=== PATIENT | female | born 1955 | race Caucasian/White ===

== ENCOUNTER → 2016-09-16 | Outpatient (CLI) | payer OTHER | LOC: FIMAGING 07:00 | PROVIDERS: ATTEND Psychiatry & Neurology Neurology | DX: M50.321 Other cervical disc degeneration at C4-C5 level (principal); M50.33 Other cervical disc degeneration, cervicothoracic region ==

== ENCOUNTER 2016-11-02 05:58 | Inpatient (IN) | payer OTHER ==
[2016-11-02] MEDS ORDERED: LIDOCAINE 1% 2 ML INJ ID PRN (06:35)
[2016-11-02] MEDS ORDERED: LR 1,000 ML IV ONE (06:35)
[2016-11-02] MEDS ORDERED: LIDOCAINE 1% 2 ML INJ ONE (06:36)
--- NOTE | 2016-11-02 06:52 | PDANEPAE ---
ANE History of Present Illness 61 yo F with cervical stenosis, here for C3-4 ACDF ANE Past Medical History - Cardiovascular History Hx Hypertension: Yes Hx Arrhythmias: No Hx Chest Pain: No Hx Coronary Artery / Peripheral Vascular Disease: No Hx CHF / Valvular Disease: No Hx Palpitations: No Cardiovascular History Comment: hx of thoracic outlet syndrome - Pulmonary History Hx COPD: No Hx Asthma/Reactive Airway Disease: No Hx Recent Upper Respiratory Infection: No Hx Oxygen in Use at Home: No Hx Sleep Apnea: No Sleep Apnea Screening Result - Last Documented: Negative - Neurologic History Hx Cerebrovascular Accident: No Hx Seizures: No Hx Dementia: No Neurologic History Comment: hx of back surgery. numbness and tingling to both arms and both legs - Endocrine History Hx Diabetes: Yes Endocrine History Comment: type 2- insulin dependent though because metformin gave her issues - Renal History Hx Renal Disorders: No - Liver History Hx Hepatic Disorders: No - Neurological & Psychiatric Hx Hx Neurological and Psychiatric Disorders: No - Cancer History Hx Cancer: No - Congenital Disorder History Hx Congenital Disorders: No - GI History Hx Gastrointestinal Disorders: Yes Gastrointestinal History Comment: GERD. hiatal hernia - Other Health History Other Health History: wears glasses for reading and computer - Chronic Pain History Chronic Pain: Yes (back pain from top to bottom) - Surgical History Prior Surgeries: 1973 oral surgery. 1975 thoracic outlet surgery- left. 1977 thoracic outlet surgery- right. 1982 bilateral bunionectomy and tendonotomies. 1983 partial vaginal hysterectomy. 1984 repair of right side thoracic outlet surgery- this is when she had anaphylactic shock d/t morphine. 1988 carpal tunnel surgery-right. 1994 right shoulder surgery. 1997 l4 lami and l5 discectomy. 1998 lasik eye surgery on left eye. 2000 abdominoplasty. 2004 carotid endarterectomy. 2005 betty. 2006 emergent appy. 2008 right shoulder surgery again. 2009 lower right dental implant. 2009 carpal tunnel surgery- left. 2009 lumbar fusion l3-4, 4-5. 2014 dental implant upper left second bicuspid. 09/2014 right carpal tunnel release- under local. 10/2014 bilateral salipingectomy and oophorectomy d/t large ovarian tumors ANE Review of Systems - Exercise capacity Exercise capacity: >=4 METS METS (RN): 4 METS ANE Patient History - Allergies Allergies/Adverse Reactions: atorvastatin [From Lipitor] Allergy (Severe, Verified 10/22/16 16:20) codeine Allergy (Severe, Verified 10/22/16 16:20) Dyspnea diclofenac [From Voltaren] Allergy (Severe, Verified 10/22/16 16:20) Dyspnea meperidine [From Demerol] Allergy (Severe, Verified 10/22/16 16:20) Dyspnea methadone Allergy (Severe, Verified 10/22/16 16:20) morphine Allergy (Severe, Verified 10/22/16 16:20) Anaphylaxis tramadol [From Ultram] Allergy (Severe, Verified 10/22/16 16:20) Dyspnea fentanyl Allergy (Mild, Verified 11/02/16 06:50) Other-Enter Comments ketamine Allergy (Mild, Verified 10/22/16 16:20) Other-Enter Comments - Home Medications Home medications: home medication list seen and reviewed Home Medications: Ascorbic Acid [Vitamin C 500 mg (*)] 500 mg PO DAILY 10/22/16 [Last Taken ] Aspirin [Aspirin 81mg (*)] 81 mg PO HS 10/22/16 [Last Taken 2 Weeks Ago] Cholecalciferol Vit D3 [Vitamin D3 (*)] 1,000 units PO DAILY 10/22/16 [Last Taken 10/19/16] Estradiol [Estradiol 1 MG (*)] 0 mg PO BID 10/22/16 [Last Taken 1 Day Ago] Herbals/Supplements -Info Only 1 ea PO DAILY 10/22/16 [Last Taken 10/19/16] Insulin Aspart [novoLOG] 5 - 15 unit SC TIDMEAL 10/22/16 [Last Taken 11/01/16 20 :00] Insulin Glargine [Lantus 100 UNITS/ML (*)] 36 units SC BID 10/22/16 [Last Taken 11/02/16 04:30] Losartan/Hydrochlorothiazide [Losartan-Hctz 50-12.5 mg Tab] 1 each PO DAILY 06/05 [Last Taken 1 Day Ago] Multivitamins [Multivitamin (*)] 1 each PO DAILY 10/22/16 [Last Taken 2 Weeks Ago] [place]-3 Fatty Acids [Fish Oil 1000 mg (*)] 1,000 mg PO DAILY 10/22/16 [Last Taken 2 Weeks Ago] Omeprazole 40 mg PO BID 10/22/16 [Last Taken 11/02/16 04:30] Ranitidine HCl 150 mg PO BID 10/22/16 [Last Taken 11/02/16 04:30] Rosuvastatin Calcium [Crestor 5mg] 5 mg PO DAILY 10/22/16 [Last Taken 1 Day Ago] - NPO status NPO Status: no food or drink >8 hours NPO Since - Liquids (Date): 11/01/16 NPO Since - Liquids (Time): 21:00 NPO Since - Solids (Date): 11/01/16 NPO Since - Solids (Time): 20:00 - Anes Hx Anes Hx: slow to awaken from anesthesia - Smoking Hx Smoking Status: Never smoked - Alcohol Use Alcohol Use: Rarely - Family Anes Hx Family Anes Hx: none Family Hx Anesthesia Complications: none ANE Labs/Vital Signs - Vital Signs Blood Pressure: 143/78 Heart Rate: 58 Respiratory Rate: 18 O2 Sat (%): 94 Height: 167.64 cm Weight: 89.811 kg ANE Physical Exam - Airway Neck exam: decreased ROM Mallampati Score: Class 4 Mouth exam: normal dental/mouth exam - Pulmonary Pulmonary: no respiratory distress - Cardiovascular Cardiovascular: regular rate and rhythym - ASA Status ASA Status: III ANE Anesthesia Plan Anesthesia Plan: general endotracheal anesthesia Specialized Airway: video laryngoscope
[2016-11-02] MEDS ORDERED: BACITRACIN 50,000 UNITS/10 ML SYR IRR ONE (06:54)
[2016-11-02] MEDS ORDERED: BUPIVACAINE/EPI 0.25% 30 ML SDV ONE (06:54)
[2016-11-02] MEDS ORDERED: THROMBIN (BOVINE) 5,000 UNIT VIAL TP ONE (06:55)
[2016-11-02] MEDS ORDERED: CHLORHEXIDINE GLUC HIBICLENS 118 ML BTL TP ONE (06:55)
[2016-11-02] MEDS ORDERED: MIDAZOLAM 2 MG/2 ML VIAL IVP ONE (06:55)
--- NOTE | 2016-11-02 07:08 | PDHPUP ---
History & Physical Update H&P update statement: This history and physical update is based on an assessment of the patient which was completed after admission or registration (within 24 hours), but prior to the surgery/procedure. H&P update: H&P reviewed & patient examined, no change in patient's condition since H&P completed
[2016-11-02] MEDS: SCOPOLAMINE HYDROBROMIDE 1.5 MG PATCH TD SCH (07:17)
[2016-11-02] MEDS ORDERED: REMIFENTANIL HCL 1 MG VIAL ONE ×2 (07:18→09:34)
[2016-11-02] MEDS ORDERED: PROPOFOL 200 MG/20 ML VIAL ONE (07:19)
[2016-11-02] MEDS ORDERED: PROPOFOL/EMULSION 500 MG/50 ML BOTTLE IV ONE ×2 (07:19→09:34)
[2016-11-02] MEDS ORDERED: fentaNYL 100 MCG/2 ML INJ ONE ×2 (07:19→10:33)
[2016-11-02] MEDS ORDERED: LIDOCAINE 2% 100 MG/5 ML SYR ONE (07:24)
[2016-11-02] MEDS ORDERED: ROCURONIUM 50 MG/5 ML VIAL ONE (07:25)
[2016-11-02] MEDS ORDERED: ceFAZolin 2 GM/DEXTROSE 100 ML IV ONE (07:30)
[2016-11-02] MEDS ORDERED: epHEDrine SULFATE 10 MG/ML SYR ONE (08:13)
[2016-11-02] MEDS ORDERED: PHENYLEPHRINE HCL 100 MCG/ML SYR ONE ×2 (08:13→09:21)
[2016-11-02] MEDS ORDERED: BISACODYL 10 MG SUPP PR PRN (08:15)
[2016-11-02] MEDS ORDERED: ONDANSETRON DISINTEGRATING 4 MG TAB PO PRN (08:15)
[2016-11-02] MEDS ORDERED: diphenhydrAMINE 25 MG CAP PO PRN (08:15)
[2016-11-02] MEDS ORDERED: LACTULOSE 20 GM/30 ML UDCUP PO PRN (08:15)
[2016-11-02] MEDS ORDERED: MAGNESIUM HYDROXIDE 30 ML UDCUP PO PRN (08:15)
[2016-11-02] MEDS ORDERED: POLYETHYLENE GLYCOL 3350 17 GM PKT PO PRN (08:15)
[2016-11-02] MEDS ORDERED: HYDROmorphONE/DILAUDID 2 MG TAB PO PRN (08:24)
[2016-11-02] MEDS ORDERED: DEXAMETHASONE 4 MG/ML VIAL ONE (08:31)
[2016-11-02] MEDS ORDERED: ONDANSETRON 4 MG/2 ML VIAL ONE (08:31)
[2016-11-02] MEDS: BUPIVACAINE 0.5% 30 ML SDV ONE ×2 (08:48→10:26)
[2016-11-02] MEDS ORDERED: NON-FORMULARY NEW DRUG (Omeprazole [Omeprazole] 40 MG) PO SCH (09:00)
[2016-11-02] MEDS ORDERED: NON-FORMULARY NEW DRUG (Rosuvastatin Calcium [Crestor 5mg] 5 MG) PO SCH (09:00)
[2016-11-02] MEDS ORDERED: NON-FORMULARY NEW DRUG (Ranitidine Hcl [Ranitidine Hcl] 150 MG) PO SCH (09:00)
[2016-11-02] MEDS ORDERED: SUGAMMADEX SODIUM 200 MG/2 ML VIAL IVP ONE (10:43)
--- NOTE | 2016-11-02 10:48 | POSTOPPROG ---
Post Op Note Date of Operation: 11/02/16 Surgeon: Shala Flores Casino Host: Shala Flores [employer] Anesthesia: GET(General Endotracheal) Pre-op Diagnosis: Cervical stenosis with myelopathy Procedure: ACDF C3-4 Inf/Abcess present in the surg proc area at time of surgery?: No Depth: Deep Incisional (Fascial) EBL: Minimal Total fluids administered: see anesthesia Complications: none Date of Surgery: 11/02/16 Post Op Day: 0 Assessment/Plan: 61 yr old s/p ACDF C3-4 for bilateral upper extremity symptoms left>right Plan: -Patient has laceration post op at the base of her tongue, consulted ENT/Dr Paul for evaluation -Hard collar for 2-3 weeks, patient already fit -PT/OT/ST -Patient has allergies to several medications, states Dilaudid and Benadryl has worked for her in the past with other surgeries -Call neurosurgery with any questions/concerns Subjective: Patient waking up in PACU Objective: PERRLA EOMI No facial droop 5/5 BUE 5/5 BLE Sensation intact to light touch BLE Dressing CDI Appropriate Neuro Check Frequency Ordered: Yes
[2016-11-02] MEDS ORDERED: ONDANSETRON 4 MG/2 ML VIAL IVP PRN (10:57)
[2016-11-02] MEDS ORDERED: OXYCODONE/APAP 5/325 TAB PO PRN (10:57)
[2016-11-02] MEDS ORDERED: ACETAMINOPHEN 500 MG TAB PO PRN (10:57)
[2016-11-02] MEDS ORDERED: NALOXONE HCL 0.4 MG/ML INJ IVP PRN (10:57)
[2016-11-02] MEDS ORDERED: HYDROmorphONE/DILAUDID 1 MG/ML SYR IVP PRN (10:57)
[2016-11-02] MEDS ORDERED: fentaNYL 100 MCG/2 ML INJ IVP PRN (10:57)
[2016-11-02] MEDS ORDERED: PROMETHAZINE HCL 25 MG/ML INJ IVP PRN ×2 (10:57→17:25)
[2016-11-02] MEDS ORDERED: PROMETHAZINE HCL 25 MG/ML INJ ONE (11:09)
[2016-11-02] MEDS ORDERED: HYDROmorphONE/DILAUDID 1 MG/ML SYR ONE (11:27)
[2016-11-02] MEDS ORDERED: NON-FORMULARY NEW DRUG (Insulin Aspart [Novolog] 0 UNIT) SC SCH (12:00)
--- NOTE | 2016-11-02 12:20 | GOP ---
[f rep st] OPERATIVE REPORT DATE OF OPERATION: 11/02/2016 SURGEON: Lina Alonso MD LAW EXAMINER: Shala Flores, nurse practitioner. PREOPERATIVE DIAGNOSIS: 1. Cervical spondylosis. 2. Degenerative disk disease throughout the entire cervical spine. 3. Severe cervical stenosis C3-C4. 4. Possible cord compression at C3-C4. POSTOPERATIVE DIAGNOSIS: 1. Cervical spondylosis. 2. Degenerative disk disease throughout the entire cervical spine. 3. Severe cervical stenosis C3-C4. 4. Possible cord compression at C3-C4. PROCEDURE PERFORMED: 1. Anterior cervical diskectomy. 2. Arthrodesis and decompression C3-C4 (61948). 3. Anterior cervical plate C3-C4 ([id number]). 4. Microscope, same incision bone graft harvest, placement of biomechanical intervertebral device a t C3-C4 with a 7 mm anatomic PEEK cage ([id number]). FINDINGS: ESTIMATED BLOOD LOSS: 50 mL. INDICATIONS: The patient is a 61-year-old who has a long history of problems in her neck, and most recent MRI demonstrated relatively severe stenosis at C3-C4 with posterior bone spurring and some qu estion of spinal stenosis or even cord compression at that level. She had multilevel cervical disea se, and in fact had multilevel foraminal stenosis that I deemed significant at 5-6, 6-7 and 7-1, and I felt that these 3 additional levels might require surgery in the future. The 4-5 level was relat ively unimpressive radiographically and had no evidence of critical compression, but I did not want her to get surgery at all these levels of the spine at least initially. It is my hope that doing a single-level might yield some relief, but if not, at a later date, we could consider surgery at 5-6, 6-7 and 7-1 levels. I expressed the opinion that these would likely need to be done. The risks of dysphagia, esophageal injury, carotid injury, recurrent laryngeal nerve injury, pseudoa rthrosis, adjacent segment disease, and the ultimate need for eventually having the entire cervical spine fused, was discussed. She understood our intentions and implications of the surgery, and she did want to proceed. DESCRIPTION OF PROCEDURE: The patient was taken to the operating room and placed in the supine posi tion. General anesthesia was begun. A midline shoulder roll was placed. She was put on the horses hoe nurse head. Care was taken to pad all points of contact. The normal C-arm was unavailable. We shot a localizing x-ray with the Elo7e portable device and this was adequate for localization. She was sterilely prepped and draped. We made an incision on the left side of the neck in a superio r neck crease. The subcutaneous tissue was dissected using Bovie cautery through the platysma, and we then used sharp and blunt dissection to work our way down to the spine medial to the sternocleido mastoid and lateral to the strap muscles, down to the prevertebral space. Localizing x-rays were ta guilherme. We dissected the longus colli muscles off the spine only at C3-C4, placed distraction pins at C3-C4 and we shot another x-ray. Each x-ray took a little additional time because it was the portab le device which had to be prepared to shoot an x-ray each time. Nevertheless, we got good images. We placed distraction pins at 3 and 4, and under the microscope removed the 3-4 disk and the cartila ginous endplates. We drilled and harvested subchondral bone for autologous grafting purposes and th en opened the posterior longitudinal ligament and decompressed the thecal sac bilaterally and the ne ural foramen. There was a large posterior bone spur coming off the C3 vertebral body, which was rem rosalie, and we got good decompression. There was some bleeding from the epidural veins above the C4 nerve root on the right hand side. Thi s was controlled very easily with Gelfoam and direct pressure. We chose a 7 mm anatomic PTC cage fr [employer] and packed it with autologous harvested bone dust from drilling the subchondral bone as well as the bone spurs at C3-C4. A nice fill was obtained. We inserted the device. We then chose a 19 mm plate and it appeared to fit, and we placed screws rostrally and inferiorly. I did not jimmy ot a sizing x-ray prior to putting the screws because of the difficulty in obtaining an x-ray. We t hen obtained an x-ray and I felt the plate was slightly short. It actually fit as a 19 mm plate fit without difficulty, but I wanted to increase the lordosis on the plate because there was slight bon y retrolisthesis of C3 and I wanted the plate to fit more flush at C3. In this way, we removes the screws holding the plate in place, bent the 21 mm plate and increased th e lordosis significantly for this. We then placed this down over the spine, put a single screw at 3 and 4 and got good purchase, put the remaining screws and then shot a final x-ray and I was very melo ppy with the positioning of this plate. The 19 mm plate was discarded. We irrigated with antibiotic saline solution, achieved meticulous hemostasis and then put the dyspha peng study drug into the prevertebral space. We then closed the incision in multiple layers using Vi cryl sutures. 7 mL of the dysphagia drug was utilized. A sterile dressing was applied. The patien t was reversed from anesthesia, extubated, and transferred to recovery in stable condition. There w ere no complications. COMPLICATIONS: None. INSTRUMENTATION USED: We used 2 Medtronic Zevo plates. We used a 19 mm plate that, after an x-ray was taken, we decided was too short. An intermediate x-ray was not taken because of our utilization of the OneEyeAnt intraoperative x-ray device today. We then ultimately decided on a 21 mm Medtronic Zevo plate that was bent to increase the lordosis. /[id number]/MODL
[2016-11-02] MEDS: ONDANSETRON 4 MG/2 ML VIAL IVP PRN ×2 (13:22→20:57)
[2016-11-02] MEDS: HYDROmorphONE/DILAUDID 1 MG/ML SYR IVP PRN ×2 (14:34→20:57)
[2016-11-02] MEDS: ceFAZolin 2 GM/DEXTROSE 100 ML IV SCH ×2 (14:42→22:25)
[2016-11-02] MEDS: INSULIN GLARGINE 100 UNITS/ML SYRINGE SC SCH (15:50)
[2016-11-02] MEDS: LOSARTAN/HCTZ 50/12.5 1 TAB PO SCH (15:50)
[2016-11-02] MEDS: FAMOTIDINE 20 MG TAB PO SCH ×3 (15:50→20:17)
[2016-11-02] MEDS: SENNOSIDES/DOCUSATE SODIUM TAB PO SCH ×2 (15:51→20:17)
[2016-11-02] MEDS: INSULIN LISPRO 100 UNIT/ML SC SCH ×2 (15:51→17:17)
[2016-11-02] MEDS: ACETAMINOPHEN 500 MG TAB PO SCH ×2 (17:17→21:27)
[2016-11-02] MEDS ORDERED: KETOROLAC 30 MG/1 ML SDV IVP ONE (17:45)
--- NOTE | 2016-11-02 18:01 | GCON ---
[f rep st] CONSULTATION ENT CONSULTATION CHIEF COMPLAINT: Tongue laceration. HISTORY OF PRESENT ILLNESS: The patient underwent ACF today and likely, intraoperatively suffered a left-sided inferior tongue laceration. There was initial bleeding and some mild bleeding postopera tively that was controlled with ice and direct pressure. The patient states that her tongue feels a bit full, but she is able to move it without difficulty and is comfortable speaking and swallowing. She feels she has full sensation at the tip of her tongue and throughout. She states she does hav e some baseline pill dysphagia, but associates this with a history of GERD. Otherwise, she denies d ysphagia, difficulty with speech, difficulty with breathing. REVIEW OF SYSTEMS: Negative on HEENT but for that which is described above. PAST MEDICAL HISTORY: Reviewed, noncontributory. PAST SURGICAL HISTORY: Reviewed, noncontributory. PHYSICAL EXAMINATION: VITAL SIGNS: Blood pressure 132/64, heart rate 65, respiratory rate 16, O2 s aturation is 95% on 4 L nasal cannula. Afebrile at 36.5 degrees Celsius. GENERAL HEAD AND FACE: N ormocephalic, atraumatic with generally symmetric facial features. EARS: Bilateral pinnae and kailee ls are nontender, nonerythematous with no evidence of otorrhea. NOSE: Unremarkable on anterior rhi noscopy. Externally, it is generally straight and normally formed. ORAL CAVITY/OROPHARYNX: White, pink and red lips are intact without contusion or laceration. Left ventral tongue has a 1.5 cm lac eration into the musculature. This is not significantly deep nor through and through. No bleeding. There is some surrounding ecchymosis and some mild edema. Ecchymosis is adjacent to the floor of mouth, on the ventral left lateral tongue. Some floor of mouth ecchymoses, as well, anteriorly. Se nsation is intact throughout. Normal tongue motor function. Good mandibular range of motion. [place] ition is intact. Posterior pharynx is clear. NECK: Anterior dressing and C-collar in place. NEUR O: Alert and interactive. Normal mood and affect. ASSESSMENT AND PLAN: A 61-year-old female with left lateral ventral [id number] tongue lacerat ion. Given that bleeding has stopped and that sensation is intact, I see no need for closure of the laceration. These typically heal quite well on their own and do not require antibiotic therapy in and of themselves. Recommend followup with ENT for some baseline dysphagia and management of her re flux disease. I provided her a contact number for followup, and would recommend followup in the t month. Please call if there are any further questions. My cell phone number is [phone]. /[id number]/MODL
[2016-11-02] MEDS: METHOCARBAMOL 750 MG in NS 50 ML IV PRN ×2 (18:02→23:52)
[2016-11-02] MEDS: PANTOPRAZOLE SODIUM 40 MG TAB PO SCH (20:17)
[2016-11-02] MEDS ORDERED: KETOROLAC 30 MG/1 ML SDV IVP SCH (21:00)
[2016-11-02] MEDS: KETOROLAC 30 MG/1 ML SDV IVP SCH (23:51)
[2016-11-03] MEDS: INSULIN GLARGINE 100 UNITS/ML SYRINGE SC SCH ×2 (00:18→10:01)
[2016-11-03] MEDS: NS 1,000 ML IV SCH ×2 (04:31→18:10)
[2016-11-03 05:20] LABS: % IMMATURE GRANULYOCYTES 0.3 % (0.0-1.1); ABSOLUTE IMMATURE GRANULOCYTES 0.04 10^3/uL (0.00-0.10); ADD DIFF? NO; ADD MORPH? NO; ADD SCAN? NO; ATYPICAL LYMPHOCYTE FLAG 0 (0-99); FRAGMENT RBC FLAG 0 (0-99); HEMATOCRIT 39.2 % (38.0-47.0); HEMOGLOBIN 13.3 g/dL (12.6-16.3); LEFT SHIFT FLG 0 (0-99); LIPEMIA HEMOLYSIS FLAG 90 (0-99); MEAN CELL HEMOGLOBIN 29.9 pg (27.9-34.1); MEAN CELL HEMOGLOBIN CONCENTR. 33.9 g/dL (32.4-36.7); MEAN CELL VOLUME 88.1 fL (81.5-99.8); MEAN PLATELET VOLUME 9.9 fL (8.7-11.7); PLATELET CLUMPS FLAG 0 (0-99); PLATELET COUNT 278 10^3/uL (150-400); RED BLOOD CELL COUNT 4.45 10^6/uL (4.18-5.33); RED CELL DISTRIBUTION WIDTH 13.2 % (11.5-15.2)
[2016-11-03 05:37] LABS: ANION GAP 9 mEq/L (8-16); CALCIUM 8.5 mg/dL (8.5-10.4); CARBON DIOXIDE 29 mEq/l (22-31); CHLORIDE 101 mEq/L (97-110); CREATININE 0.6 mg/dL (0.6-1.0); GLOMERULAR FILTRATION RATE > 60; GLUCOSE 171 mg/dL (70-100); POTASSIUM 3.7 mEq/L (3.5-5.2); SODIUM 139 mEq/L (134-144)
[2016-11-03] MEDS: KETOROLAC 30 MG/1 ML SDV IVP SCH (05:41)
--- NOTE | 2016-11-03 06:38 | POSTANESTH ---
Post Anesthetic Evaluation Cardiovascular Status: Normal, Stable, Similar to Pre-Op Cond Respiratory Status: Normal, Stable, Similar to Pre-op Cond. Level of Consciousness/Mental Status: Moderately Sleepy Pain Control: Adequate, Prn Tx Ordered Nausea/Vomiting Control: Adequate, Prn Tx Ordered Complications Possibly Related to Anesthesia: None Noted Notes: Upon emergence from GA a small amount of blood noted in oropharynx, pt appeared to have bitten her tongue during neuromonuitoring, in spite of bit block in place throughout.
[2016-11-03] MEDS: ACETAMINOPHEN 500 MG TAB PO SCH (06:50)
[2016-11-03] MEDS ORDERED: PATCH REMOVAL 1 EA PATCH TD ONE (06:59)
--- NOTE | 2016-11-03 07:30 | NEUSURGPN ---
Date of Surgery: 11/02/16 Post Op Day: 1 Assessment/Plan: 61 yr old s/p ACDF C3-4 for bilateral upper extremity symptoms left>right POD#1 Plan: -Patient has laceration post op at the base of her tongue, consulted ENT/Dr Paul yesterday who did not recommend any treatment at this time. Patient states her left side of her tongue is numb and feels this may be contributing to her difficulty swallow. Her tongue is swollen. We appreciate speech recs this am. -Hard collar for 2-3 weeks, patient already fit -PT/OT/ST -Continue to monitor blood sugars, use sliding scale if needed -Will keep in SDU today to monitor airway due to difficulty swallowing and swollen tongue from laceration -Patient received 2 doses of Toradol yesterday, we will not want to give any more Toradol during her stay -Patient has allergies to several medications, states Dilaudid and Benadryl has worked for her in the past with other surgeries -Call neurosurgery with any questions/concerns Subjective: Patient feels her arms are better Objective: PERRLA EOMI No facial droop 5/5 BUE 5/5 BLE Sensation intact to light touch BLE Dressing CDI Neuro Check Frequency: per routine Urinary Catheter in Place: No - Physician Discussed Patient with .: Gavin Patient Seen by : Gavin Neurosurgery Physical Exam - Vitals, I&O, Labs I and O 11/02/16 11/03/16 11/04/16 05:59 05:59 05:59 Intake Total 2323 Output Total 25 Balance 2298 Weight 89.811 kg Intake: Oral (ml) 0 IV Intake (ml) 1050 IV Infused (ml) 1273 Methocarbamol 750 mg In 57 Ns 50 ml @ 230 mls/hr IV TID PRN Rx#:[id number] Ns 1,000 ml @ 100 mls/hr 1116 IV CONT MANNY Rx#: [id number] ceFAZolin 2 GM/DEXTROSE 100 100 ml @ 200 mls/hr IV Q8H MANNY Rx#:[id number] Output: Estimated Blood Loss (ml) 25 Other: Intake Quantity No Sufficient Number of Voids Toilet 2 Vital Signs Temp Pulse Resp BP Pulse Ox 36.8 C 83 15 114/64 93 11/03/16 07:18 11/03/16 07:18 11/03/16 07:18 11/03/16 07:18 11/03/16 07:18 Laboratory Results 11/03/16 04:53 11/03/16 04:53 ICD10 Worksheet Patient Problems: Problems Problem Status Onset Dysphagia Acute Stenosis of cervical spine with myelopathy Acute - ICD10 Problem Qualifiers (1) Dysphagia Qualifiers: Dysphagia type: other dysphagia Qualified Code(s): R13.19 - Other dysphagia (2) Stenosis of cervical spine with myelopathy
[2016-11-03] MEDS: METHOCARBAMOL 750 MG in NS 50 ML IV PRN ×2 (08:24→19:48)
[2016-11-03] MEDS: ACETAMINOPHEN 650 MG/20.3 ML UDCUP PO SCH ×3 (09:42→21:42)
[2016-11-03] MEDS: INSULIN LISPRO 100 UNIT/ML SC SCH ×3 (10:01→19:28)
[2016-11-03] MEDS ORDERED: PANTOPRAZOLE SODIUM 40 MG in NS 100 ML IV ONE ×2 (11:00→20:15)
--- NOTE | 2016-11-03 13:58 | GCON ---
[f rep st] CONSULTATION CRITICAL CARE CONSULT DATE OF CONSULTATION: 11/03/2016 HISTORY OF PRESENT ILLNESS: The patient is a 61-year-old female, who has a history of cervical sten osis, who underwent an anterior cervical decompression and fixation of C3-C4 that was complicated by a tongue injury intraoperatively. The injury itself caused a small laceration, which is healing ni rima. She has been evaluated by ENT and has had no great issues. She does complain of some difficu lty swallowing, but that is more in the back of her throat and not from her tongue, which has improv ed by today. Her speech is normal and the tongue is not protruding. There has been no drooling, an d she has not been short of breath. There has been no stridor observed. PAST MEDICAL HISTORY: The cervical stenosis and degenerative joint disease as described above. She also has diabetes managed with insulin. She also takes quite a bit of herbal supplements. Hyperli pidemia, gastroesophageal reflux disease, and hypertension. PAST SURGICAL HISTORY: Previous back surgery. SOCIAL HISTORY: She is a nonsmoker. No alcohol or IV drug use. FAMILY HISTORY: Noncontributory. ALLERGIES: Lipitor, codeine, Voltaren, Demerol, methadone, morphine, tramadol, fentanyl, ketamine, and all other opiates. HOME MEDICATIONS: Vitamin C, aspirin, vitamin D3, estradiol, multiple herbals, insulin aspartate 5- 15 units t.i.d. with meals, Lantus 36 units subcutaneous b.i.d., losartan hydrochlorothiazide 50/12. 5 daily, multivitamin daily, omega-3 fatty acids, omeprazole 40 mg p.o. b.i.d., ranitidine 150 mg p. o. b.i.d., and Crestor 5 mg. PHYSICAL EXAMINATION: VITAL SIGNS: She was afebrile. Heart rate was 64, blood pressure 95/45, res pirations 13, oxygen saturation 94% on room air. GENERAL APPEARANCE: She was awake and alert in no apparent distress with a C-collar in place. HEENT: She did have a bruising and a healing lacerati on on her tongue more lateralized to the left side. Tongue did look swollen to me but was not obstr ucting the airway. It looked more like a Mallampati class 3. Dressings were clean and dry around h er neck. Breath sounds were clear to auscultation bilaterally without stridor or wheezing. HEART: Regular rate and rhythm without murmurs, rubs, gallops. ABDOMEN: Soft, nontender, nondistended wi thout hepatosplenomegaly. EXTREMITIES: No clubbing, cyanosis, or edema. NEUROLOGIC: Nonfocal, in cluding cranial nerves, deep tendon reflexes. OBJECTIVE DATA: Includes labs from today. A white count of 14.8, hematocrit was 39, and platelets were 278. Basic metabolic panel was normal. Blood sugar has been running 147-171. ASSESSMENT/PLAN: 1. Tongue laceration. She has already been evaluated by Ears, Nose and Throat. No surgical interve ntion is required. It does not appear to be affecting her airway. The swallowing issues she is hav ing seem to be more distal and Speech is in current evaluation of that at this point. 2. Hypertension. Her blood pressure seems to be fine. We can hold her medications for now. 3. Diabetes. She is getting a sliding scale and is n.p.o. for the moment. Ortho will come back an d see her again. I think she can likely be discharged from step-down status back to the floor. The re does not appear to be any airway compromise related to her tongue laceration. /[id number]/MODL
[2016-11-03] MEDS: PANTOPRAZOLE SODIUM 40 MG TAB PO SCH ×2 (15:06→20:12)
[2016-11-03] MEDS: ROSUVASTATIN CALCIUM 10 MG TAB PO SCH (15:07)
[2016-11-03] MEDS: SENNOSIDES/DOCUSATE SODIUM TAB PO SCH ×2 (15:07→20:12)
[2016-11-03] MEDS: LOSARTAN/HCTZ 50/12.5 1 TAB PO SCH (15:07)
[2016-11-03] MEDS: FAMOTIDINE 20 MG TAB PO SCH ×2 (15:08→20:12)
[2016-11-04] MEDS: NS 1,000 ML IV SCH (04:36)
[2016-11-04] MEDS: ACETAMINOPHEN 650 MG/20.3 ML UDCUP PO SCH (05:02)
--- NOTE | 2016-11-04 08:39 | NEUSURGPN ---
Date of Surgery: 11/02/16 Post Op Day: 2 Assessment/Plan: 61 yr old s/p ACDF C3-4 for bilateral upper extremity symptoms left>right POD#2 Plan: -Patient has laceration post op at the base of her tongue, consulted ENT/Dr Paul 11/02 post op who did not recommend any treatment at this time. -Patient continues to have difficulty with swallowing, unable to take food PO at this time, we appreciate speech eval for recommended diet. May consider discharge home if able to take food PO -No concern for airway issues at this time -Patient may transfer to floor today -Hard collar for 2-3 weeks, patient already fit -PT/OT/ST -Continue to monitor blood sugars, use sliding scale if needed -Patient received 2 doses of Toradol 11/02, we will not want to give any more Toradol during her stay -Patient has allergies to several medications, states Dilaudid and Benadryl has worked for her in the past with other surgeries, patient feels pain is well controlled with Tylenol and Robaxin at this time -Call neurosurgery with any questions/concerns Subjective: Patient would like to go home, not able to swallow Objective: PERRLA EOMI No facial droop 5/5 BUE 5/5 BLE Sensation intact to light touch BLE Dressing CDI Neuro Check Frequency: per routine Urinary Catheter in Place: No - Physician Discussed Patient with .: Gavin Patient Seen by : Gavin Neurosurgery Physical Exam - Vitals, I&O, Labs I and O 11/03/16 11/04/16 11/05/16 05:59 05:59 05:59 Intake Total 2323 2760.9 Output Total 25 Balance 2298 2760.9 Weight 89.811 kg Intake: Oral (ml) 0 480 IV Intake (ml) 1050 IV Infused (ml) 1273 2280.9 Methocarbamol 750 mg In 57 107.5 Ns 50 ml @ 230 mls/hr IV TID PRN Rx#:[id number] Ns 1,000 ml @ 100 mls/hr 1116 2073.4 IV CONT MANNY Rx#: [id number] Pantoprazole Sodium 40 mg 100 In Ns 100 ml @ 200 mls/ hr IV ONCE ONE Rx#: [id number] ceFAZolin 2 GM/DEXTROSE 100 100 ml @ 200 mls/hr IV Q8H MANNY Rx#:[id number] Output: Estimated Blood Loss (ml) 25 Other: Intake Quantity No Sufficient Number of Voids Toilet 2 1 Vital Signs Temp Pulse Resp BP Pulse Ox 36.9 C 75 16 117/52 L 92 11/04/16 07:25 11/04/16 07:25 11/04/16 07:25 11/04/16 07:25 11/04/16 07:25 Laboratory Results 11/03/16 04:53 11/03/16 04:53 ICD10 Worksheet Patient Problems: Problems Problem Status Onset Dysphagia Acute Stenosis of cervical spine with myelopathy Acute - ICD10 Problem Qualifiers (1) Dysphagia Qualifiers: Dysphagia type: other dysphagia Qualified Code(s): R13.19 - Other dysphagia (2) Stenosis of cervical spine with myelopathy
[2016-11-04] MEDS ORDERED: FAMOTIDINE 20 MG/NACL 50 ML IV PRN (08:44)
[2016-11-04] MEDS ORDERED: FAMOTIDINE 20 MG/NACL 50 ML IV SCH (09:00)
[2016-11-04] MEDS: FAMOTIDINE 20 MG TAB PO SCH ×2 (11:03→20:53)
[2016-11-04] MEDS: PANTOPRAZOLE SODIUM 40 MG TAB PO SCH ×2 (11:03→20:53)
[2016-11-04] MEDS: LOSARTAN/HCTZ 50/12.5 1 TAB PO SCH (11:05)
[2016-11-04] MEDS: ROSUVASTATIN CALCIUM 10 MG TAB PO SCH (11:05)
[2016-11-04] MEDS: SENNOSIDES/DOCUSATE SODIUM TAB PO SCH ×2 (11:07→21:01)
[2016-11-04] MEDS: INSULIN LISPRO 100 UNIT/ML SC SCH ×3 (11:09→20:18)
[2016-11-04] MEDS: METHOCARBAMOL 750 MG TAB PO PRN ×2 (11:25→20:53)
[2016-11-04] MEDS: ACETAMINOPHEN 500 MG TAB PO SCH ×3 (11:28→20:53)
[2016-11-04] MEDS: ONDANSETRON 4 MG/2 ML VIAL IVP PRN ×2 (15:30→20:28)
[2016-11-04] MEDS: INSULIN GLARGINE 100 UNITS/ML SYRINGE SC SCH (20:28)
[2016-11-05] MEDS: ACETAMINOPHEN 500 MG TAB PO SCH (04:39)
[2016-11-05] MEDS: METHOCARBAMOL 750 MG TAB PO PRN (04:39)
--- NOTE | 2016-11-05 07:18 | NEUSURGPN ---
Date of Surgery: 11/02/16 Post Op Day: 3 Assessment/Plan: 61 yr old s/p ACDF C3-4 for bilateral upper extremity symptoms left>right POD#3 Plan: -Patient has laceration post op at the base of her tongue, consulted ENT/Dr Paul 11/02 post op who did not recommend any treatment at this time. Swelling is improved and patient has been cleared with swallowing per speech. -Patient may discharge home today -Hard collar for 2-3 weeks -Patient reports some nausea last evening, will send home with Zofran -Call neurosurgery with any questions/concerns Subjective: Patient eating, ready to go home Objective: PERRLA EOMI No facial droop 5/5 BUE 5/5 BLE Sensation intact to light touch BLE Incision CDI-removed dressing Neuro Check Frequency: per routine Urinary Catheter in Place: No - Physician Discussed Patient with : Gavin Patient Seen by : Gavin Neurosurgery Physical Exam - Vitals, I&O, Labs I and O 11/04/16 11/05/16 11/06/16 05:59 05:59 05:59 Intake Total 2760.9 800 Output Total 450 Balance 2760.9 350 Intake: Oral (ml) 480 800 IV Infused (ml) 2280.9 Methocarbamol 750 mg In 107.5 Ns 50 ml @ 230 mls/hr IV TID PRN Rx#:[id number] Ns 1,000 ml @ 100 mls/hr 2073.4 IV CONT MANNY Rx#: [id number] Pantoprazole Sodium 40 mg 100 In Ns 100 ml @ 200 mls/ hr IV ONCE ONE Rx#: [id number] Output: Urine (ml) 450 Toilet 450 Other: Number of Voids Toilet 1 2 Number of Stools Toilet 1 Number of Emesis 2 Occurrences Vital Signs Temp Pulse Resp BP Pulse Ox 36.9 C 80 16 131/62 H 92 11/04/16 23:33 11/04/16 23:33 11/04/16 23:33 11/04/16 23:33 11/04/16 23:33 Laboratory Results 11/03/16 04:53 11/03/16 04:53 ICD10 Worksheet Patient Problems: Problems Problem Status Onset Dysphagia Acute Stenosis of cervical spine with myelopathy Acute - ICD10 Problem Qualifiers (1) Dysphagia Qualifiers: Dysphagia type: other dysphagia Qualified Code(s): R13.19 - Other dysphagia (2) Stenosis of cervical spine with myelopathy
[2016-11-05] MEDS: INSULIN LISPRO 100 UNIT/ML SC SCH ×2 (07:44→12:12)
[2016-11-05 08:15] VITALS: BP 107/52; PULSE 71; RESP 14; TEMP 98.5; O2SAT 96
[2016-11-05] MEDS: INSULIN GLARGINE 100 UNITS/ML SYRINGE SC SCH (08:56)
[2016-11-05] MEDS: LOSARTAN/HCTZ 50/12.5 1 TAB PO SCH ×2 (08:59→09:00)
[2016-11-05] MEDS ORDERED: ENOXAPARIN 40 MG/0.4 ML SYR SC SCH (09:00)
[2016-11-05] MEDS: FAMOTIDINE 20 MG TAB PO SCH (09:00)
[2016-11-05] MEDS: SCOPOLAMINE HYDROBROMIDE 1.5 MG PATCH TD SCH (09:02)
[2016-11-05] MEDS: ROSUVASTATIN CALCIUM 10 MG TAB PO SCH (09:02)
[2016-11-05] MEDS: PANTOPRAZOLE SODIUM 40 MG TAB PO SCH (09:02)
[2016-11-05] MEDS: SENNOSIDES/DOCUSATE SODIUM TAB PO SCH (09:09)
== END 2016-11-05 13:18 | disposition home or self-care (01) | DRG 473 ==
LOC: F3N 05:58 → F2N 13:24 → OBSVTOIN 11-03 11:00 → F3N 11-04 18:10
PROVIDERS: ADMIT Neurological Surgery; ATTEND Neurological Surgery
PROC: 00NW0ZZ Release Cervical Spinal Cord, Open Approach (ICD-10-PCS; principal; 2016-11-02 07:30)
PROC: 0RG10A0 Fusion of Cervical Vertebral Joint with Interbody Fusion Device, Anterior Approach, Anterior Column, Open Approach (ICD-10-PCS; principal; 2016-11-02 07:30)
DX: M47.892 Other spondylosis, cervical region (principal); M50.31 Other cervical disc degeneration, high cervical region; M50.320 Other cervical disc degeneration, mid-cervical region, unspecified level; M48.02 Spinal stenosis, cervical region; I10 Essential (primary) hypertension; E11.9 Type 2 diabetes mellitus without complications; K21.9 Gastro-esophageal reflux disease without esophagitis; Z79.4 Long term (current) use of insulin
CPT/HCPCS: 92526-GN; 92610-GN; 97161-GP; 97165-GO; 97535-GO; C1713; G0378; J0690; J1100; J1170; J1200; J1650; J1815; J1885; J2001; J2250; J2370; J2405; J2550; J2704; J2800; J3010

== ENCOUNTER → 2016-12-16 | Outpatient (CLI) | payer OTHER | LOC: FIMAGING 15:18 | PROVIDERS: ATTEND Physician Assistant | DX: Z09 Encounter for follow-up examination after completed treatment for conditions other than malignant neoplasm (principal); Z98.1 Arthrodesis status ==

== ENCOUNTER → 2017-03-01 | Outpatient (CLI) | payer OTHER | LOC: FIMAGING 10:18 | PROVIDERS: ATTEND Physician Assistant | DX: Z09 Encounter for follow-up examination after completed treatment for conditions other than malignant neoplasm (principal); Z98.1 Arthrodesis status; M50.322 Other cervical disc degeneration at C5-C6 level; M50.33 Other cervical disc degeneration, cervicothoracic region ==

== ENCOUNTER 2018-01-26 07:15 | Inpatient (IN) | payer OTHER ==
[2018-01-26] MEDS: SCOPOLAMINE HYDROBROMIDE 1 MG/3 DAYS PATCH TD SCH (07:30)
[2018-01-26] MEDS ORDERED: LR 1,000 ML IV ONE (07:55)
[2018-01-26] MEDS ORDERED: LIDOCAINE 1% 2 ML INJ ID PRN (07:55)
[2018-01-26] MEDS ORDERED: GABAPENTIN 300 MG CAP PO ONE (07:55)
[2018-01-26] MEDS ORDERED: ceFAZolin 2 GM/DEXTROSE 100 ML IV ONE (07:55)
[2018-01-26] MEDS ORDERED: ACETAMINOPHEN 500 MG TAB PO ONE (07:55)
[2018-01-26] MEDS ORDERED: ONDANSETRON 4 MG/2 ML VIAL IVP ONE (08:57)
[2018-01-26] MEDS ORDERED: ONDANSETRON 4 MG/2 ML VIAL ONE ×2 (08:58→19:18)
[2018-01-26] MEDS ORDERED: EPINEPHrine 1 MG/ML INJ ONE (09:34)
[2018-01-26] MEDS ORDERED: BUPIVACAINE 0.25% 30 ML SDV ONE (09:34)
[2018-01-26] MEDS ORDERED: CHLORHEXIDINE GLUC HIBICLENS 118 ML BTL TP ONE (09:35)
[2018-01-26] MEDS ORDERED: BACITRACIN 50,000 UNITS/10 ML SYR IRR ONE ×3 (09:35→16:18)
[2018-01-26] MEDS ORDERED: THROMBIN (BOVINE) 20,000 UNIT SPRAY TP ONE (09:39)
[2018-01-26] MEDS ORDERED: MIDAZOLAM 2 MG/2 ML VIAL IVP ONE (10:22)
--- NOTE | 2018-01-26 10:22 | PDANEPAE ---
ANE History of Present Illness 62 yo for ant/post cervical fusion ANE Past Medical History - Cardiovascular History Hx Hypertension: Yes Hx Arrhythmias: No Hx Chest Pain: No Hx Coronary Artery / Peripheral Vascular Disease: No Hx CHF / Valvular Disease: No Hx Palpitations: No Cardiovascular History Comment: hx of thoracic outlet syndrome - Pulmonary History Hx COPD: No Hx Asthma/Reactive Airway Disease: No Hx Recent Upper Respiratory Infection: No Hx Oxygen in Use at Home: No Hx Sleep Apnea: No Sleep Apnea Screening Result - Last Documented: Negative - Neurologic History Hx Cerebrovascular Accident: No Hx Seizures: No Hx Dementia: No Neurologic History Comment: hx of back surgeries. 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 right 5th toe intermittent numbness. bilat hand numbness. 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 hiatal hernia - Other Health History Other Health History: wears glasses for reading and computer - Chronic Pain History Chronic Pain: Yes (neck all the wy down torso to pelvis) - Surgical History Prior Surgeries: 1973 oral surgery. 1975 thoracic outlet surgery- left. 1977 thoracic outlet surgery- right. 1982 bilateral bunionectomy and tendonotomies. 1983 partial vaginal hysterectomy. 1984 repair of right side thoracic outlet surgery- this is when she had anaphylactic shock d/t morphine. 1988 carpal tunnel surgery-right. 1994 right shoulder surgery. 1997 l4 lami and l5 discectomy. 1998 lasik eye surgery on left eye. 2001 abdominoplasty. 2004 parotid gland surgery. 2005 cholecystectomy. 2006 emergent appy. 2008 right shoulder surgery again. 2007 lumbar fusion l3-4, 4-5. 2008 lower right dental implant. 2009 carpal tunnel surgery- left. 2013 dental implant upper left second bicuspid. 09/2014 right carpal tunnel release- under local. 10/2014 bilateral salipingectomy and oophorectomy d/t large ovarian tumors. 10/2016 C3- 4 fusion. 07/2017 blepharoplasty for eyelid issues ANE Review of Systems Review of Systems: - Exercise capacity METS (RN): 4 METS ANE Patient History - Allergies Allergies/Adverse Reactions: atorvastatin [From Lipitor] Allergy (Verified 12/31/17 17:52) coughing, muscle aches codeine Allergy (Verified 12/31/17 17:52) Dyspnea, nausea diclofenac [From Voltaren] Allergy (Verified 12/31/17 17:52) nausea fentanyl Allergy (Verified 12/31/17 17:52) sensitive to transdermal patch ONLY ketamine Allergy (Verified 12/31/17 17:52) hard to wake up meperidine [From Demerol] Allergy (Verified 12/31/17 17:52) became obtunded methadone Allergy (Verified 12/31/17 17:52) noted with skin testing morphine Allergy (Verified 12/31/17 17:52) Anaphylaxis tramadol [From Ultram] Allergy (Verified 12/31/17 17:52) Dyspnea - Home Medications Home medications: home medication list seen and reviewed Home Medications: Dulaglutide [Trulicity] 0.75 mg SQ SA@0800 01/10/18 [Last Taken 01/22/18 0.75] Estradiol [Vivelle-Dot 0.1MG (*)] 0.1 mg TD MOTH@0800 01/10/18 [Last Taken 01/24] Gabapentin [Neurontin 100 MG (*)] 100 mg PO HS 01/10/18 [Last Taken 01/25/18 22: 00] Herbals/Supplements -Info Only 1 ea PO DAILY 01/10/18 [Last Taken 01/18/18] Ibuprofen Sr 800mg 800 mg PO HS 01/10/18 [Last Taken 01/18/18] Insulin Aspart [novoLOG] 0 unit SQ 5XD PRN 01/10/18 [Last Taken 01/25/18 07:30 16 Units] Insulin Degludec [Tresiba Flextouch U-100] 80 unit SQ HS 01/10/18 [Last Taken 22:30 80 Units] Lansoprazole 30 mg PO BID 01/10/18 [Last Taken 01/26/18 05:45] Losartan/Hctz 50/12.5 [Hyzaar 50/12.5MG (*)] 1 tab PO DAILY 01/10/18 [Last Taken 01/25/18 08:00] Potassium Aspartate 99 mg PO DAILY 01/10/18 [Last Taken 01/25/18 08:00] Ranitidine HCl 150 mg PO BID 01/10/18 [Last Taken 01/26/18 05:45] Rosuvastatin Calcium 5 mg PO HS 01/10/18 [Last Taken 01/25/18 22:00] - NPO status NPO Status: no food or drink >8 hours NPO Since - Liquids (Date): 01/26/18 NPO Since - Liquids (Time): 03:00 NPO Since - Solids (Date): 01/25/18 NPO Since - Solids (Time): 20:00 - Smoking Hx Smoking Status: Never smoked - Family Anes Hx Family Hx Anesthesia Complications: none ANE Labs/Vital Signs - Vital Signs Blood Pressure: 125/79 Heart Rate: 80 Respiratory Rate: 16 O2 Sat (%): 94 Height: 5 ft 6 in Weight: 86.183 kg ANE Physical Exam - Airway Neck exam: decreased ROM, spinal fusion Mallampati Score: Class 2 Mouth exam: normal dental/mouth exam - Pulmonary Pulmonary: no respiratory distress - Cardiovascular Cardiovascular: regular rate and rhythym - ASA Status ASA Status: III ANE Anesthesia Plan Anesthesia Plan: general endotracheal anesthesia Lines/Monitors: arterial line Specialized Airway: video laryngoscope
[2018-01-26] MEDS ORDERED: REMIFENTANIL HCL 1 MG VIAL ONE ×3 (10:27→16:29)
[2018-01-26] MEDS ORDERED: fentaNYL 100 MCG/2 ML INJ ONE (10:27)
[2018-01-26] MEDS ORDERED: PROPOFOL/EMULSION 500 MG/50 ML BOTTLE IV ONE ×3 (10:27→16:30)
[2018-01-26] MEDS ORDERED: ROCURONIUM 50 MG/5 ML VIAL ONE (10:30)
[2018-01-26] MEDS ORDERED: BISACODYL 10 MG SUPP PR PRN (11:18)
[2018-01-26] MEDS ORDERED: POLYETHYLENE GLYCOL 3350 17 GM PKT PO PRN (11:18)
[2018-01-26] MEDS ORDERED: diphenhydrAMINE 25 MG CAP PO PRN (11:18)
[2018-01-26] MEDS ORDERED: LACTULOSE 20 GM/30 ML UDCUP PO PRN (11:18)
[2018-01-26] MEDS ORDERED: MAGNESIUM HYDROXIDE 30 ML UDCUP PO PRN (11:18)
[2018-01-26] MEDS ORDERED: ONDANSETRON DISINTEGRATING 4 MG TAB PO PRN (11:18)
[2018-01-26] MEDS ORDERED: ONDANSETRON 4 MG/2 ML VIAL IVP PRN ×2 (11:18→19:21)
[2018-01-26] MEDS ORDERED: INSULIN ASPART SQ PRN (11:24)
[2018-01-26] MEDS ORDERED: NS 1,000 ML IV SCH (11:30)
[2018-01-26] MEDS ORDERED: HYDROmorphONE/DILAUDID 2 MG/ML INJ ONE (16:19)
--- NOTE | 2018-01-26 17:35 | PDMN ---
Medical Necessity Medical necessity: Pt meets inpt criteria per MD order and [facility], Cervical Fusion, Posterior, medicare inpt only surg list. 62 y/o w/hx of cervical stenosis and spondylosis admitted for C5/6, C6/7, C7/1 cervical fusion anterior , cervical fusion posterior, and post-op care.
[2018-01-26] MEDS ORDERED: PHENYLEPHRINE HCL 100 MCG/ML SYR ONE (17:36)
[2018-01-26] MEDS ORDERED: ALBUMIN 5% 250 ML BOTTLE IV ONE (18:17)
[2018-01-26] MEDS ORDERED: ceFAZolin 1 GM VIAL ONE ×4 (18:26)
[2018-01-26] MEDS ORDERED: NALOXONE HCL 0.4 MG/ML INJ IVP PRN (19:21)
[2018-01-26] MEDS ORDERED: PROMETHAZINE HCL 25 MG/ML INJ IVP PRN (19:21)
[2018-01-26] MEDS ORDERED: fentaNYL 100 MCG/2 ML INJ IVP PRN (19:21)
[2018-01-26] MEDS ORDERED: HYDROmorphONE/DILAUDID 2 MG/ML INJ IVP PRN (19:21)
[2018-01-26] MEDS: ceFAZolin 2 GM/DEXTROSE 100 ML IV SCH (19:30)
--- NOTE | 2018-01-26 20:11 | POSTOPPROG ---
Post Op Note Date of Operation: 01/26/18 Surgeon: Jessenia Alonso Infectious Waste Technician: Shala Flores NP Anesthesiologist: Dr Humphrey Anesthesia: GET(General Endotracheal) Pre-op Diagnosis: Cervical stenosis Procedure: ACDF C5-6, C6-7, C7-T1, PSF C3-T1, left C4-5 foraminotomy Inf/Abcess present in the surg proc area at time of surgery?: No Depth: Deep Incisional (Fascial) EBL: 100-500 Total fluids administered: see anesthesia Complications: none Drains: Deshawn Bear Date of Surgery: 01/26/18 Post Op Day: 0 Assessment/Plan: Assessment: 62 yr old F s/p ACDF C5-6, C6-7, C7-T1, PSF C3-T1, left C4-5 foraminotomy Plan: -Admit SDU -Pain management: Precedex ordered, patient has many allergies to pain medication. She has a history of tolerating Dilaudid when taken with Benadryl -PT/OT/ST -Hard collar on at all times -MARYLIN to bulb suction -Post op xrays pending -Please call neurosurgery with questions/concerns Subjective: waking up in pacu Objective: waking up in pacu Following commands No facial droop AMAYA x4 Dressings x3 CDI MARYLIN patent Collar in place [place] x4 to left temporal region intact Appropriate Neuro Check Frequency Ordered: Yes
[2018-01-26] MEDS ORDERED: FAMOTIDINE 20 MG TAB PO SCH ×2 (21:00)
[2018-01-26] MEDS ORDERED: INSULIN DEGLUDEC 80 UNIT SQ SCH (21:00)
[2018-01-26] MEDS: DEXMEDETOMIDINE HCL 400 MCG in NS 100 ML IV SCH (21:23)
[2018-01-26] MEDS: ACETAMINOPHEN 500 MG TAB PO SCH (22:00)
[2018-01-26] MEDS: GABAPENTIN 300 MG CAP PO SCH (22:15)
[2018-01-26] MEDS: SENNOSIDES/DOCUSATE SODIUM TAB PO SCH (22:16)
[2018-01-26] MEDS: METHOCARBAMOL 750 MG TAB PO SCH (22:16)
[2018-01-27] MEDS: HYDROmorphONE/DILAUDID 1 MG/ML INJ IVP PRN ×4 (00:25→23:54)
[2018-01-27] MEDS: ceFAZolin 2 GM/DEXTROSE 100 ML IV SCH (03:01)
[2018-01-27] MEDS: DEXMEDETOMIDINE HCL 400 MCG in NS 100 ML IV SCH ×3 (05:05→23:06)
[2018-01-27 05:20] LABS: PLATELET COUNT 212 10^3/uL (150-400)
--- NOTE | 2018-01-27 05:33 | GOP ---
DATE OF OPERATION: 01/26/2018 SURGEON: Lina Alonso MD NEUROSURGEON: Lina Alonso MD HAMMERER: Shala Flores, Nurse Practitioner. PREOPERATIVE DIAGNOSIS: 1. Multilevel cervical spondylosis with prior cervical fusion C3-4. 2. Left cervical foraminal stenosis C4-5. 3. Cervical stenosis C5-6, 6-7, 7-1. 4. Bilateral cervical radiculopathy. POSTOPERATIVE DIAGNOSIS: 1. Multilevel cervical spondylosis with prior cervical fusion C3-4. 2. Left cervical foraminal stenosis C4-5. 3. Cervical stenosis C5-6, 6-7, 7-1. 4. Bilateral cervical radiculopathy. PROCEDURE PERFORMED: 1. Anterior cervical diskectomy with arthrodesis and decompression C5-6, 6-7, 7-1. 2. Placement of biomechanical intervertebral device C5-6, 6-7, 7-1. 3. Anterior cervical instrumentation 4 levels; C5, C6, C7, T1. 4. Same incision bone graft harvest. 5. Microscope. FINDINGS: ESTIMATED BLOOD LOSS: 100 cc. INDICATIONS: The patient is a middle-aged woman who has a prior history of severe cervical stenosis at 3-4, and she had a successful decompression and fusion at that level, but over the last several mo nths she has developed progressive difficulty with radiating pain into her arms, into both hands and difficulty using her hands. MRI demonstrated findings throughout the rest of her cervical spine. At C4-5 the problems were not quite as bad, but there was some left cervical foraminal stenosis. There was very severe right foraminal stenosis at 5-6, 6-7 and bilateral foraminal stenosis at C7-T1 that was worse on the left than on the right. I suggested a 3-level cervical diskectomy and fusion of tho se lower levels but a posterior cervical fusion as well from C3 to T1, so we could address all of the se issues. The risks of pseudoarthrosis, adjacent segment disease, nerve injury, spinal fluid leak, continued symptoms, the possible need for further surgery were discussed. She understood the risks o f the anterior approach including the risk of vascular injury, nerve injury, and severe dysphagia. S he knew this would be much more difficult than the single level fusion that she had done previously, and she accepted these risks. She had an ENT evaluation prior to surgery demonstrating normal vocal cord motion, and her prior surgery was a left-sided approach, and we elected to go in from the right side. She did want to proceed. DESCRIPTION OF PROCEDURE: The patient was taken to the operating room. She was placed in the supine position. General anesthesia was begun. She was carefully positioned on the operating room table. Midline shoulder roll was placed. Her arms and shoulders were taped to the sides. Care was taken t o pad all points of contact. Her neck was sterilely prepped and draped in the usual fashion. A loca lizing x-ray was taken. We made a transverse incision on the right side of her neck in 1 of the lowe r neck creases on the right-hand side. The subcutaneous tissue was dissected using Bovie cautery romy n through the platysma. We then used a combination of sharp and blunt dissection to work our way med ial to the sternocleidomastoid and lateral to the strap muscles down the prevertebral space. It was relatively easy getting down the prevertebral space, but then we increased our exposure working our w ay from C5 all the way down to T1. She had extremely large osteophytes present at C5-6, 6-7 and 7-1, but they were biggest at 5-7 and 6-7. We dissected the longus colli muscles off the osteophytes and then carefully removed all the ventral osteophytes from the spine. We placed distraction pins at C5 -6 and under the microscope, distracted the 5-6 vertebral bodies, removed the disk and the cartilagin ous endplates. We drilled and harvested subchondral bone for autologous grafting purposes. We opene d the posterior longitudinal ligament, decompressed the thecal sac and the neural foramen bilaterally . There was right greater than left neural foraminal stenosis at this level, but we got a great deco mpression. We chose an 8 x 14 x 16 mm device, packed it with autologously harvested bone dust and in serted it at 5-6. Moved our distraction pin and did likewise at 6-7. We drilled and removed the dis k at C6-7 and drilled and harvested subchondral bone for autologous grafting purposes. We then opene d the PLL and decompressed the thecal sac and the neural foramen on each side. We chose a 7 x 16 x 1 4 mm device for this level. It was packed with autologously harvested bone dust and inserted at C6-7 . We moved our distraction pins and went down to C7-T1 where we did likewise; remove the disk, the c artilaginous endplates, drilled and harvested subchondral bone for autologous grafting purposes. We then opened the posterior longitudinal ligament, decompressed the thecal sac and the neural foramen b ilaterally. We had a great decompression at that level. We then carefully prepped the ventral surfa ce of the vertebral bodies for acceptance of the plate and chose a 57 mm plate. We increased its anna dosis slightly. We placed a single screw at C5 and a single screw at T1. I was happy with the posit ioning of the plate and its length. We placed the remaining screws and locked them according to comp any specification. We then achieved meticulous hemostasis in the prevertebral space and placed a lit tle Marcaine with epinephrine in the wound. We then closed the platysma with interrupted Vicryl sutu res and the skin was reapproximated with interrupted Vicryl sutures. Steri-Strips were applied. Tati paris concluded the first procedure on this patient today. COMPLICATIONS: None. INSTRUMENTATION USED: A 57 mm Zevo plate with an 8 x 16 x 14 mm device at 5-6; a 7 x 16 x 14 mm tish ce at 6-7 and C7-T1. We used 3.5 x 15 mm screws, but we did use a single 3.5 x 17 mm screw on the le ft at C5. /[id number]/MODL
--- NOTE | 2018-01-27 06:08 | GOP ---
DATE OF OPERATION: 01/26/2018 SURGEON: Lina Alonso MD NEUROSURGEON: Lina Alonso MD. DESIGN PRINTING MACHINE SET UP OPERATOR: Shala Flores NP PREOPERATIVE DIAGNOSIS: Cervical spondylosis, cervical stenosis, bilateral cervical radiculopathy, prior cervical fusion, C3-4. POSTOPERATIVE DIAGNOSIS: Cervical spondylosis, cervical stenosis, bilateral cervical radiculopathy, prior cervical fusion, C3-4. She has an autofusion at C2-3 posteriorly. PROCEDURE PERFORMED: Posterior cervical arthrodesis and fusion with instrumentation at C3-4, C4-5, C5-6, C6-7, C7-T1 ([id number], [id number] x4), ([id number]), with posterior cervical instrumentation at C3, 4, 5, and C7-T1, left cervical foraminotomy C4-5 ([id number]), same incision bone graft harvest. FINDINGS: ESTIMATED BLOOD LOSS: 400 cc. The total EBL for both procedures was 500 cc INDICATIONS: The patient is a middle-aged female with symptomatic cervical stenosis, severe spondylosis, multilevel cervical foraminal stenosis. She is losing function in her hands and has terrible pain radiating down both arms, and desired to have surgery. We discussed the risk of screw and hardware malposition, pseudoarthrosis, adjacent segment disease, neck stiffness. She understood that she may end up having chronic neck discomfort as a result of the procedure. Surgery sometimes creates neck discomfort, but our goal was to help alleviate the symptoms radiating into her arms, and we were optimistic that we could do this. She understood there was risk of CSF leak and nerve injury, and she wanted to proceed despite these risks. DESCRIPTION OF PROCEDURE: This procedure began after the conclusion of an ACDF procedure. The patient had already been intubated. We placed the patient in Schroeder head frame, flipped in prone onto the Deshawn table. Care was taken to pad all points of contact. Her back was sterilely prepped and draped in usual fashion. A localizing x-ray was taken. We made a midline incision from the spinous process of C2 to the spinous process of T2. The subcutaneous tissue was dissected using Bovie cautery down to the fascia, and a subperiosteal dissection was made down to C3-4, 5, 6, 7 and T1 laminas. Self- retaining retractor was placed. We did get some bleeding just lateral to the lateral masses on the right-hand side at about the C5-6 level, and this was most of the blood loss for the case. It was controlled with Gel-Foam. There did appear to be evidence of solid bony union at C3-4, but I also could not quite tell what was going on at C2-3. It looked like the C2-3 lateral masses were a single unit, but I could not fully tell because I did not expose C2 significantly. We decorticated all of the bone posterior laterally from C3 down to T1, and attached the Stealth reference from the T1 spinous process and using ___stereotaxy we placed pedicle screws bilaterally at C7 and T1. These were 20 mm screws by 3.5 mm diameter. They were Medtronic infinity screws. The intraoperative spin showed solid marita fusion of C23 and c34. We then placed 6 lateral mass screws at C3, 4, 5, performed an O-arm spin, and all the hardware was in excellent position. We took an 80 mm damion and bent it to fit the screws on the left and another 80 mm damion and bent it to fit the screws on the right. Before putting the rods in place though, we removed the left C4 and C5 screws, and then drilled a foraminotomy. There was actually pretty severe foraminal stenosis exiting C5 nerve root. We drilled a foraminotomy and decompressed the exiting C5 nerve root out beyond the pedicle of C5. We got a great decompression and placed the rods down over the screws after placing the left C4 and C5 screws, and then distracted slightly at C4-5 to open that foramen on the left. We then final tightened all the cap screws according to company specification, placed BMP posterolaterally bilaterally from C3 [address] the way down to C7-T1. We placed bone autograft mostly at C6-7 and C7-T1. We then placed a subfascial drain, and then closed the incision in multiple layers using Vicryl sutures. Steri-Strips were applied to the skin. The patient was reversed from anesthesia, extubated, and transferred to recovery room in stable condition. There were no complications. COMPLICATIONS: None. INSTRUMENTATION USED: Medtronic Infinity System. We used 2 mg of BMP and we used two 80 mm titanium rods. /[id number]/MODL MTDD
[2018-01-27] MEDS: GABAPENTIN 300 MG CAP PO SCH ×3 (06:37→21:53)
[2018-01-27] MEDS: METHOCARBAMOL 750 MG TAB PO SCH (06:37)
[2018-01-27] MEDS: ACETAMINOPHEN 500 MG TAB PO SCH (06:37)
--- NOTE | 2018-01-27 07:37 | NEUSURGPN ---
Date of Surgery: 01/26/18 Post Op Day: 1 Assessment/Plan: Assessment: 62 yr old F s/p ACDF C5-6, C6-7, C7-T1, PSF C3-T1, left C4-5 foraminotomy POD#1 Plan: -Admitted SDU, patient on Precedex, difficulty swallowing -Pain management: Precedex patient has many allergies to pain medication. She has a history of tolerating Dilaudid when taken with Benadryl -Difficulty with swallowing, continue IVF. Will change Robaxin to IV. Speech to eval this am. -Will give 125mg Solumedrol IV x1 now, then Decadron 8mg IVx1 tonight -PT/OT/ST -Hard collar on at all times, readjusted this am -MARYLIN to bulb suction-leave in for now -Hospitalist/Gali Salas Consulted for diabetes management -Post op xrays pending -Patient reports improvement in upper extremity symptoms -Discussed patient with Dr Alonso -Please call neurosurgery with questions/concerns Subjective: Sitting up in bed, trouble with swallowing. Bilateral hands feel better Objective: Awakens to voice Follows commands Clear speech MAEx4 5/5 BUE, BLE Dressings x2 CDI MARYLIN patent Collar in place Neuro Check Frequency: per routine Urinary Catheter in Place: Yes Urinary Catheter Indication: Other (Use Comment) (On precedex) Catheter Insertion Date: 01/26/18 - Physician Discussed Patient with : Gavin Neurosurgery Physical Exam - Vitals, I&O, Labs I and O 01/26/18 01/27/18 01/28/18 05:59 05:59 05:59 Intake Total 3387 Output Total 2670 Balance 717 Weight 93.6 kg Intake: Oral (ml) 20 IV Intake (ml) 2600 IV Infused (ml) 767 Dexmedetomidine HCl 400 101 mcg In Ns 100 ml @ Titrate IV CONT MANNY Rx#: [id number] Ns 1,000 ml @ 75 mls/hr 566 IV CONT MANNY Rx#: [id number] ceFAZolin 2 GM/DEXTROSE 100 100 ml @ 200 mls/hr IV Q8H MANNY Rx#:[id number] Output: Urine (ml) 2000 Catheter 2000 Estimated Blood Loss (ml) 500 MARYLIN Drain Output (ml) 170 Posterior Neck Deshawn 170 Bear Vital Signs Temp Pulse Resp BP Pulse Ox 36.5 C 67 13 99/51 L 100 11/08/18 06:00 01/27/18 06:00 01/27/18 06:00 01/27/18 06:00 01/27/18 06:00 Laboratory Results 01/27/18 05:05 01/27/18 05:05 ICD10 Worksheet Patient Problems: Problems Problem Status Onset Dysphagia Acute Stenosis of cervical spine with myelopathy Acute
[2018-01-27] MEDS ORDERED: methylPREDNISolone SOD SUCC 125 MG/2 ML VIAL IVP ONE (07:38)
[2018-01-27] MEDS ORDERED: ESTRADIOL VIVELLE 0.1 MG PATCH TD SCH (08:00)
--- NOTE | 2018-01-27 08:06 | POSTANESTH ---
Post Anesthetic Evaluation Cardiovascular Status: Normal, Stable Respiratory Status: Normal, Stable Level of Consciousness/Mental Status: Can Participate in Eval Pain Control: Adequate, Prn Tx Ordered Nausea/Vomiting Control: Adequate, Prn Tx Ordered Complications Possibly Related to Anesthesia: None Noted
[2018-01-27] MEDS: METHOCARBAMOL 1,000 MG in NS 50 ML IV SCH ×3 (08:35→21:37)
[2018-01-27] MEDS ORDERED: PANTOPRAZOLE SODIUM 40 MG TAB PO SCH (09:00)
[2018-01-27] MEDS ORDERED: LOSARTAN/HCTZ 50/12.5 1 TAB PO SCH (09:00)
--- NOTE | 2018-01-27 09:20 | ASMTCASEMG ---
Living Arrangements What is your living Answers: With Spouse arrangement? Who do you live with? Type Of Residence What kind of residence do Answers: House you live in? Discharge Plan Comments Coordination Status Comments Notes: Patient is a 62yo female who has cervical stenosis and spondylosis and worsening pain and weakness. She was admitted for surgery, C5/6, 6/7, 09/19 cervical fusion anterior, cervical fusion posterior w/stealth neuro monitoring. OT/PT/DATA ABSTRACTOR ordered. D/C plan TBD. CM will follow. Date Signed: 01/27/2018 09:19 AM Electronically Signed By:Louann Dawkins LCSW
[2018-01-27] MEDS: SENNOSIDES/DOCUSATE SODIUM TAB PO SCH ×2 (10:28→21:55)
[2018-01-27] MEDS: [UNRECOGNIZED DRUG - OTHER] PO SCH (10:28)
[2018-01-27] MEDS: FAMOTIDINE 20 MG/NACL 50 ML IV SCH ×2 (10:33→21:09)
[2018-01-27] MEDS: PANTOPRAZOLE SODIUM 40 MG VIAL IVP SCH ×2 (10:33→21:06)
[2018-01-27] MEDS: ACETAMINOPHEN 650 MG SUPP PR SCH ×3 (12:10→23:53)
[2018-01-27] MEDS ORDERED: METHOCARBAMOL 1,000 MG in NS 50 ML IV SCH (14:00)
[2018-01-27] MEDS: INSULIN LISPRO 100 UNIT/ML SC SCH ×2 (14:35→17:40)
[2018-01-27] MEDS ORDERED: INSULIN DEGLUDEC 40 UNIT SQ SCH (14:39)
--- NOTE | 2018-01-27 14:46 | PDHOSCONS ---
History and Physical - Chief Complaint diabetes - History of Present Illness This is a 62 yo female with cervical stenosis admitted for cervical surgery. She is on POD #2. She has a hx of IDDM and HTN. Glucose is elevated. BP is soft. She reports a long hx of insulin use. She reports that her glucose is typically well controlled. BP is well controlled she denies pain. she denies cp or sob. she is npo PMHx: HTN, GERD, HLD, Lumbar Fusion FMhx: Non contributory SocHx: no tobacco or ETOH History Information - Allergies/Home Medication List Allergies/Adverse Reactions: atorvastatin [From Lipitor] Allergy (Verified 12/31/17 17:52) coughing, muscle aches codeine Allergy (Verified 12/31/17 17:52) Dyspnea, nausea diclofenac [From Voltaren] Allergy (Verified 12/31/17 17:52) nausea fentanyl Allergy (Verified 12/31/17 17:52) sensitive to transdermal patch ONLY ketamine Allergy (Verified 12/31/17 17:52) hard to wake up meperidine [From Demerol] Allergy (Verified 12/31/17 17:52) became obtunded methadone Allergy (Verified 12/31/17 17:52) noted with skin testing morphine Allergy (Verified 12/31/17 17:52) Anaphylaxis tramadol [From Ultram] Allergy (Verified 12/31/17 17:52) Dyspnea Home Medications: Dulaglutide [Trulicity] 0.75 mg SQ SA@0800 01/10/18 [Last Taken 01/22/18 0.75] Estradiol [Vivelle-Dot 0.1MG (*)] 0.1 mg TD MOTH@0800 01/10/18 [Last Taken 01/24] Gabapentin [Neurontin 100 MG (*)] 100 mg PO HS 01/10/18 [Last Taken 01/25/18 22: 00] Herbals/Supplements -Info Only 1 ea PO DAILY 01/10/18 [Last Taken 01/18/18] Ibuprofen Sr 800mg 800 mg PO HS 01/10/18 [Last Taken 01/18/18] Insulin Aspart [novoLOG] 0 unit SQ 5XD PRN 01/10/18 [Last Taken 01/25/18 07:30 16 Units] Insulin Degludec [Tresiba Flextouch U-100] 80 unit SQ HS 01/10/18 [Last Taken 22:30 80 Units] Lansoprazole 30 mg PO BID 01/10/18 [Last Taken 01/26/18 05:45] Losartan/Hctz 50/12.5 [Hyzaar 50/12.5MG (*)] 1 tab PO DAILY 01/10/18 [Last Taken 01/25/18 08:00] Potassium Aspartate 99 mg PO DAILY 01/10/18 [Last Taken 01/25/18 08:00] Ranitidine HCl 150 mg PO BID 01/10/18 [Last Taken 01/26/18 05:45] Rosuvastatin Calcium 5 mg PO HS 01/10/18 [Last Taken 01/25/18 22:00] I have personally reviewed and updated: medical history, social history - Social History Smoking Status: Never smoked Review of Systems Review of Systems: ROS: 10pt was reviewed & negative except for what was stated in HPI & below Physical Exam Physical Exam: Temp Pulse Resp BP Pulse Ox 36.4 C 70 19 104/43 L 97 01/27/18 11:39 01/27/18 11:39 01/27/18 11:39 01/27/18 11:39 01/27/18 11:39 O2 (L/minute) 3 Constitutional: no apparent distress Eyes: PERRL Ears, Nose, Mouth, Throat: moist mucous membranes, hearing normal Cardiovascular: regular rate and rhythym, No edema Respiratory: no respiratory distress, no rales or rhonchi, clear to auscultation Gastrointestinal: normoactive bowel sounds, soft, non-tender abdomen Skin: warm Neurologic: AAOx3 Psychiatric: interacting appropriately, not anxious, not encephalopathic Lymph, Heme, Immunologic: No petechiae Lab Data & Imaging Review 01/27/18 05:05 01/27/18 05:05 WBC 16.53 10^3/uL (3.80-9.50) H 01/27/18 05:05 RBC 3.48 10^6/uL (4.18-5.33) L 01/27/18 05:05 Hgb 10.5 g/dL (12.6-16.3) L 01/27/18 05:05 Hct 30.7 % (38.0-47.0) L 01/27/18 05:05 MCV 88.2 fL (81.5-99.8) 01/27/18 05:05 MCH 30.2 pg (27.9-34.1) 01/27/18 05:05 MCHC 34.2 g/dL (32.4-36.7) 01/27/18 05:05 RDW 13.2 % (11.5-15.2) 01/27/18 05:05 Plt Count 212 10^3/uL (150-400) 01/27/18 05:05 MPV 9.6 fL (8.7-11.7) 01/27/18 05:05 Neut % (Auto) 85.7 % (39.3-74.2) H 01/27/18 05:05 Lymph % (Auto) 7.7 % (15.0-45.0) L 01/27/18 05:05 Kay % (Auto) 6.1 % (4.5-13.0) 01/27/18 05:05 Eos % (Auto) 0.0 % (0.6-7.6) L 01/27/18 05:05 Baso % (Auto) 0.1 % (0.3-1.7) L 01/27/18 05:05 Nucleat RBC Rel Count 0.0 % (0.0-0.2) 01/27/18 05:05 Absolute Neuts (auto) 14.15 10^3/uL (1.70-6.50) H 01/27/18 05:05 Absolute Lymphs (auto) 1.28 10^3/uL (1.00-3.00) 01/27/18 05:05 Absolute Monos (auto) 1.01 10^3/uL (0.30-0.80) H 01/27/18 05:05 Absolute Eos (auto) 0.00 10^3/uL (0.03-0.40) L 01/27/18 05:05 Absolute Basos (auto) 0.02 10^3/uL (0.02-0.10) 01/27/18 05:05 Absolute Nucleated RBC 0.00 10^3/uL (0-0.01) 01/27/18 05:05 Immature Gran % 0.4 % (0.0-1.1) 01/27/18 05:05 Immature Gran # 0.07 10^3/uL (0.00-0.10) 01/27/18 05:05 Sodium 140 mEq/L (135-145) 01/27/18 05:05 Potassium 3.9 mEq/L (3.3-5.0) 01/27/18 05:05 Chloride 104 mEq/L (97-110) 01/27/18 05:05 Carbon Dioxide 28 mEq/l (22-31) 01/27/18 05:05 Anion Gap 8 mEq/L (6-14) 01/27/18 05:05 BUN 14 mg/dL (7-23) 01/27/18 05:05 Creatinine 0.5 mg/dL (0.6-1.0) L 01/27/18 05:05 Estimated GFR > 60 01/27/18 05:05 Glucose 250 mg/dL (70-100) H 01/27/18 05:05 POC Glucose 281 mg/dL (70-100) H 01/27/18 13:46 Calcium 7.9 mg/dL (8.5-10.4) L 01/27/18 05:05 Patient ABO/Rh A POSITIVE 01/21/18 11:54 Antibody Screen NEGATIVE 01/21/18 11:54 Assessment & Plan Assessment: #s/p Neck/Cervical Surgery on 01/26 -post op care per NS #Acute Pain Syndrome -cont with pain mgmt #IDDM with Hyperglycemia -did not have long acting insulin yesterday -will give now. will decrease to 40 units -start ISS -check A1C #HTN with soft BP -hold HCTZ/Losartan #Dysphagia: NPO currently. Failed Swallow. Reeval soon Lovenox for DVT proph Plan: per above would wean off Precedex is able to thank you for this consult, we will follow along
[2018-01-27] MEDS: ESTRADIOL VIVELLE 0.1 MG PATCH TD SCH (16:42)
[2018-01-27] MEDS ORDERED: DEXAMETHASONE 4 MG/ML VIAL IVP ONE (18:00)
[2018-01-27] MEDS: NS 1,000 ML IV SCH (18:36)
[2018-01-27] MEDS: ROSUVASTATIN CALCIUM 10 MG TAB PO SCH (21:55)
[2018-01-28] MEDS: METHOCARBAMOL 1,000 MG in NS 50 ML IV SCH ×3 (05:19→21:51)
[2018-01-28] MEDS: GABAPENTIN 300 MG CAP PO SCH ×3 (05:28→20:29)
[2018-01-28] MEDS: ACETAMINOPHEN 650 MG SUPP PR SCH ×3 (05:45→17:58)
[2018-01-28 05:50] LABS: PLATELET COUNT 219 10^3/uL (150-400)
[2018-01-28] MEDS: NS 1,000 ML IV SCH (07:37)
[2018-01-28] MEDS: PANTOPRAZOLE SODIUM 40 MG VIAL IVP SCH ×2 (07:37→20:29)
[2018-01-28] MEDS: FAMOTIDINE 20 MG/NACL 50 ML IV SCH ×2 (07:37→20:28)
[2018-01-28] MEDS: INSULIN LISPRO 100 UNIT/ML SC SCH ×3 (07:37→18:09)
[2018-01-28] MEDS: [UNRECOGNIZED DRUG - OTHER] PO SCH (07:54)
[2018-01-28] MEDS: SENNOSIDES/DOCUSATE SODIUM TAB PO SCH ×2 (07:54→20:29)
[2018-01-28] MEDS: DEXMEDETOMIDINE HCL 400 MCG in NS 100 ML IV SCH (08:23)
[2018-01-28] MEDS ORDERED: INSULIN DEGLUDEC 50 UNIT SQ SCH (08:27)
--- NOTE | 2018-01-28 08:36 | NEUSURGPN ---
Assessment/Plan: Assessment: 62 yr old F s/p ACDF C5-6, C6-7, C7-T1, PSF C3-T1, left C4-5 foraminotomy POD#2 Plan: -Admitted SDU, patient on Precedex, difficulty swallowing - currently NPO, STAMP MACHINE SERVICER to see again today -Pain management: On Precedex - weaning this today. patient has many allergies to pain medication. She has a history of tolerating Dilaudid when taken with Benadryl -Was given 125mg Solumedrol IV x1, then Decadron 8mg IVx1 tonight -PT/OT/ST -DC reynaga once more ambulatory, plan for later today -Hard collar on at all times, fitting well -MARYLIN to bulb suction- to be removed today -Appreciate Hospitalist assistance with diabetes management -Post op xrays show stable hardware -Patient reports improvement in upper extremity symptoms -Discussed patient with Dr Alonso -Please call neurosurgery with questions/concerns Subjective: Pt resting in bed, states pain is tolerable. Has been sleeping on and off overnight. Not swallowing great. Objective: Awake and alert NAD VSS MAEx4 Motor 5/5 BUE Incisions cdi C collar in place [id number] Reynaga in Urinary Catheter in Place: Yes Urinary Catheter Indication: Surgical Requirement (to be removed today) Catheter Insertion Date: 01/26/18 - Physician Discussed Patient with : Gavin Patient Seen by : Gavin Neurosurgery Physical Exam - Vitals, I&O, Labs I and O 01/27/18 01/28/18 01/29/18 05:59 05:59 05:59 Intake Total 3387 2921 Output Total 2670 2210 Balance 717 711 Weight 93.6 kg Intake: Oral (ml) 20 200 IV Intake (ml) 2600 IV Infused (ml) 767 8381 Dexmedetomidine HCl 400 101 277 mcg In Ns 100 ml @ Titrate IV CONT MANNY Rx#: [id number] Famotidine 20 mg/NaCl 50 50 ml @ 200 mls/hr IV Q12 [facility] Rx#:[id number] Methocarbamol 1,000 mg In 200 Ns 50 ml @ 200 mls/hr IV Q8HRS [facility] Rx#:[id number] Ns 1,000 ml @ 75 mls/hr 566 2194 IV CONT MANNY Rx#: [id number] ceFAZolin 2 GM/DEXTROSE 100 100 ml @ 200 mls/hr IV Q8H [facility] Rx#:[id number] Output: Urine (ml) 1999 2049 Catheter 1999 2049 Estimated Blood Loss (ml) 500 MARYLIN Drain Output (ml) 170 160 Posterior Neck Deshawn 170 160 Bear Other: Intake Quantity No: NPO Sufficient Vital Signs Temp Pulse Resp BP Pulse Ox 36.4 C 60 17 109/45 L 97 01/28/18 07:45 01/28/18 07:45 01/28/18 07:45 01/28/18 07:45 01/28/18 07:45 Laboratory Results 01/28/18 05:07 01/28/18 05:07 ICD10 Worksheet Patient Problems: Problems Problem Status Onset Dysphagia Acute Stenosis of cervical spine with myelopathy Acute
[2018-01-28] MEDS ORDERED: TRESIBA 10 UNITS SC ONE (09:43)
[2018-01-28] MEDS ORDERED: NALOXONE HCL 0.4 MG/ML INJ IVP PRN (11:15)
[2018-01-28] MEDS ORDERED: HYDROmorphONE/DILAUDID 6 MG/30 ML PCA IV PRN (11:15)
--- NOTE | 2018-01-28 11:17 | HOSPPROG ---
Hospitalist Progress Note Assessment/Plan: #s/p Neck/Cervical Surgery on 01/26 -post op care per NS #Acute Pain Syndrome -cont with pain mgmt -would wean off Precedex. It is interfering with PT -consider Dilaudid MICROBIOLOGY TECHNICIAN pump #IDDM with Hyperglycemia -decreased Tresiba to 40 units as pt NPO. Still with Hyperglycemia, will provide additional 10 units now and increase to 50 units daily. Once tolerating PO will need to return to home dosing. -cont ISS -A1C pending #HTN with soft BP -hold HCTZ/Losartan #Dysphagia: NPO currently. Failed Swallow. Reeval soon, hopefully today Lovenox for DVT proph #GERD: -On IV Protonix BID due to NPO. Change back to PO once tolerating PO Burger per NS, remove soon thank you for this consult, we will follow along Subjective: difficult to work with PT due to sedation. moving all extremities. Hyperglycemia is persistent Objective: Vital Signs Temp Pulse Resp BP Pulse Ox 36.4 C 60 17 109/45 L 97 01/28/18 07:45 01/28/18 07:45 01/28/18 07:45 01/28/18 07:45 01/28/18 07:45 Laboratory Results 01/28/18 05:07 01/28/18 05:07 01/27/18 01/28/18 01/29/18 05:59 05:59 05:59 Intake Total 3387 2921 Output Total 2670 2210 Balance 717 711 - Physical Exam Constitutional: no apparent distress Eyes: PERRL Ears, Nose, Mouth, Throat: moist mucous membranes, hearing normal Cardiovascular: regular rate and rhythym Respiratory: no respiratory distress, no rales or rhonchi, clear to auscultation Gastrointestinal: normoactive bowel sounds, soft, non-tender abdomen Skin: warm Musculoskeletal: generalized weakness Neurologic: AAOx3 Psychiatric: interacting appropriately, not anxious, not encephalopathic Lymph, Heme, Immunologic: No petechiae ICD10 Worksheet Patient Problems: Problems Problem Status Onset Dysphagia Acute Stenosis of cervical spine with myelopathy Acute
[2018-01-28] MEDS ORDERED: NS 500 ML IV ONE ×2 (16:39→18:00)
[2018-01-28 17:19] LABS: PLATELET COUNT 218 10^3/uL (150-400)
[2018-01-28] MEDS: ROSUVASTATIN CALCIUM 10 MG TAB PO SCH (20:29)
[2018-01-28] MEDS: D50W 25 GM/50 ML SYR IVP PRN (21:51)
[2018-01-29] MEDS: ACETAMINOPHEN 650 MG SUPP PR SCH ×5 (00:26→23:35)
[2018-01-29] MEDS: GABAPENTIN 300 MG CAP PO SCH ×3 (03:19→21:43)
[2018-01-29] MEDS: METHOCARBAMOL 1,000 MG in NS 50 ML IV SCH ×3 (05:28→22:57)
[2018-01-29 06:07] LABS: PLATELET COUNT 234 10^3/uL (150-400)
--- NOTE | 2018-01-29 07:56 | NEUSURGPN ---
Assessment/Plan: Assessment: 62 yr old F s/p ACDF C5-6, C6-7, C7-T1, PSF C3-T1, left C4-5 foraminotomy POD#3 Plan: -Admitted SDU, off of Precedex, continued difficulty swallowing - will give 1 more additional dose of steroid -currently NPO, ACID DIPPER to see again today -Pain management: patient has many allergies to pain medication. She has a history of tolerating Dilaudid when taken with Benadryl. Has dilaudid FLY WORKER in place, not using much -PT/OT/ST -Hard collar on at all times, fitting well -Appreciate Hospitalist assistance with diabetes management and other medical issues -Post op xrays show stable hardware -Patient reports improvement in upper extremity symptoms -Discussed patient with Dr Alonso -Please call neurosurgery with questions/concerns Subjective: Pt resting in chair, states she is not feeling good. Continued difficulty swallowing Objective: AAOx3 NAD VSS MAEx4 Motor 5/5 BUE C collar on Incisions dressed cdi Urinary Catheter in Place: No Catheter Insertion Date: 01/26/18 - Physician Discussed Patient with : Gavin Neurosurgery Physical Exam - Vitals, I&O, Labs I and O 01/28/18 01/29/18 01/30/18 05:59 05:59 05:59 Intake Total 2921 2794 Output Total 2210 1275 375 Balance 711 1519 -375 Intake: Oral (ml) 200 IV Infused (ml) 2721 2794 Dexmedetomidine HCl 400 277 mcg In Ns 100 ml @ Titrate IV CONT [facility] Rx#: [id number] Famotidine 20 mg/NaCl 50 50 100 ml @ 200 mls/hr IV Q12 [facility] Rx#:[id number] Methocarbamol 1,000 mg In 200 125 Ns 50 ml @ 200 mls/hr IV Q8HRS [facility] Rx#:[id number] Ns 1,000 ml @ 75 mls/hr 2194 819 IV CONT [facility] Rx#: [id number] Ns 1,000 ml @ 75 mls/hr 750 IV CONT [facility] Rx#: [id number] Ns 500 ml @ 1500 mls/hr 500 IV ONCE ONE Rx#: [id number] Ns 500 ml @ As Directed 500 IV ONCE ONE Rx#: [id number] Output: Urine (ml) 2050 1275 375 Bedside Commode 875 375 Catheter 2050 400 MARYLIN Drain Output (ml) 160 Posterior Neck Deshawn 160 Bear Other: Intake Quantity No: NPO Sufficient Number of Voids Bedside Commode 4 Number of Stools Bedside Commode 1 Vital Signs Temp Pulse Resp BP Pulse Ox 36.5 C 66 16 113/52 L 97 01/28/18 16:28 01/29/18 06:00 01/29/18 06:00 01/29/18 06:00 01/29/18 06:00 Laboratory Results 01/29/18 05:55 01/28/18 05:07 ICD10 Worksheet Patient Problems: Problems Problem Status Onset Dysphagia Acute Stenosis of cervical spine with myelopathy Acute
[2018-01-29] MEDS ORDERED: DEXAMETHASONE 4 MG/ML VIAL IVP ONE (07:57)
[2018-01-29] MEDS ORDERED: Dulaglutide [Trulicity] 0.75 MG SQ SCH (08:00)
[2018-01-29] MEDS: INSULIN LISPRO 100 UNIT/ML SC SCH ×3 (08:24→18:07)
[2018-01-29] MEDS: PANTOPRAZOLE SODIUM 40 MG VIAL IVP SCH ×2 (09:14→21:07)
[2018-01-29] MEDS: FAMOTIDINE 20 MG/NACL 50 ML IV SCH ×2 (09:14→21:06)
[2018-01-29] MEDS: SENNOSIDES/DOCUSATE SODIUM TAB PO SCH ×2 (09:14→21:43)
[2018-01-29] MEDS: ENOXAPARIN 40 MG/0.4 ML SYR SC SCH (09:14)
[2018-01-29] MEDS: [UNRECOGNIZED DRUG - OTHER] PO SCH (09:14)
--- NOTE | 2018-01-29 11:02 | ASMTCMCOM ---
CM Note CM Note Notes: Patient is POD #3 extensive cervical spine surgery. She is having difficulty swallowing; SENIOR MANAGER MMCOE will see her. She is normally independent and lives with her . She feels strongly that inpatient rehab will be best disposition. Order has been sent; [facility] will follow Wednesday 01/31. Date Signed: 01/29/2018 11:01 AM Electronically Signed By:Paige Shay RN
[2018-01-29] MEDS: SCOPOLAMINE HYDROBROMIDE 1 MG/3 DAYS PATCH TD SCH (11:22)
[2018-01-29] MEDS ORDERED: ALTEPLASE 2 MG VIAL IVP PRN (11:39)
--- NOTE | 2018-01-29 11:48 | HOSPPROG ---
Hospitalist Progress Note Assessment/Plan: #s/p Neck/Cervical Surgery on 01/26 -post op care per NS #Acute Pain Syndrome -cont with pain mgmt -cont Dilaudid END MATCHER #IDDM with Hyperglycemia, now with hypoglycemia -likely from being NPO -she did required D50 -at this point will monitor off long acting insulin. If glucose is elevated today, will provide a lower amount of long acting insulin. -cont ISS #HTN with soft BP initially, now better after fluids -cont holding HCTZ/Losartan. Can restart once taking PO #Dysphagia: NPO currently. Failed Swallow again today -s/p steroid today -VIDEO CAMERA OPERATOR following Lovenox for DVT proph #GERD: -On IV Protonix BID due to NPO. Change back to PO once tolerating PO #Burger, will be removed today #IV access: lost IV access today. Nursing could not replace. Will get PICC. thank you for this consult, we will follow along Subjective: more awake today. bouts of hypoglycemia Objective: Vital Signs Temp Pulse Resp BP Pulse Ox 36.3 C 74 17 146/64 H 99 01/29/18 08:00 01/29/18 08:00 01/29/18 08:00 01/29/18 08:00 01/29/18 08:00 Laboratory Results 01/29/18 05:55 01/28/18 05:07 01/28/18 01/29/18 01/30/18 05:59 05:59 05:59 Intake Total 2921 2794 Output Total 2210 1275 725 Balance 711 1519 -725 - Physical Exam Constitutional: no apparent distress Eyes: PERRL Ears, Nose, Mouth, Throat: moist mucous membranes, hearing normal, ears appear normal Cardiovascular: regular rate and rhythym, No edema Respiratory: no respiratory distress, no rales or rhonchi, clear to auscultation Gastrointestinal: normoactive bowel sounds, soft, non-tender abdomen Skin: warm Neurologic: AAOx3 Psychiatric: interacting appropriately, not anxious, not encephalopathic Lymph, Heme, Immunologic: No petechiae ICD10 Worksheet Patient Problems: Problems Problem Status Onset Dysphagia Acute Stenosis of cervical spine with myelopathy Acute
[2018-01-29] MEDS: D50W 25 GM/50 ML SYR IVP PRN (15:34)
[2018-01-29] MEDS ORDERED: D5W NS 1,000 ML IV SCH (16:30)
[2018-01-29] MEDS: ROSUVASTATIN CALCIUM 10 MG TAB PO SCH (21:43)
[2018-01-30] MEDS: METHOCARBAMOL 1,000 MG in NS 50 ML IV SCH ×2 (05:23→17:16)
[2018-01-30] MEDS: GABAPENTIN 300 MG CAP PO SCH ×3 (05:54→23:07)
[2018-01-30] MEDS: ENOXAPARIN 40 MG/0.4 ML SYR SC SCH (09:58)
[2018-01-30] MEDS: PANTOPRAZOLE SODIUM 40 MG VIAL IVP SCH ×2 (09:58→19:51)
[2018-01-30] MEDS: FAMOTIDINE 20 MG/NACL 50 ML IV SCH (09:59)
[2018-01-30] MEDS: ACETAMINOPHEN 650 MG SUPP PR SCH ×2 (09:59→17:13)
[2018-01-30] MEDS: SENNOSIDES/DOCUSATE SODIUM TAB PO SCH ×3 (10:01→20:03)
[2018-01-30] MEDS: INSULIN LISPRO 100 UNIT/ML SC SCH ×3 (10:07→17:49)
--- NOTE | 2018-01-30 10:19 | NEUSURGPN ---
Assessment/Plan: Assessment: 62 yr old F s/p ACDF C5-6, C6-7, C7-T1, PSF C3-T1, left C4-5 foraminotomy POD#4 Plan: -Continued difficulty swallowing - was given 1 more additional dose of steroid yesterday-currently NPO, BATTERY ASSEMBLER to see again today -Pain management: patient has many allergies to pain medication. She has a history of tolerating Dilaudid when taken with Benadryl. Has dilaudid PAPER FOLDER in place, not using much -PT/OT/ST -Hard collar on at all times, fitting well -Appreciate Hospitalist assistance with diabetes management and other medical issues -Post op xrays show stable hardware -Change dressing today -Patient reports improvement in upper extremity symptoms -Please call neurosurgery with questions/concerns Subjective: Pt resting at edge of bed, hoping she can start swallowing today Objective: AAOx3 NAD VSS MAEx4 Motor 5/5 BUE C collar on dressings in place cdi Urinary Catheter in Place: No Catheter Insertion Date: 01/26/18 Neurosurgery Physical Exam - Vitals, I&O, Labs I and O 01/29/18 01/30/18 01/31/18 05:59 05:59 05:59 Intake Total 2794 1490 Output Total 1275 2125 Balance 1519 -635 Intake: IV Intake (ml) 620 IV Infused (ml) 2794 870 Famotidine 20 mg/NaCl 50 100 20 ml @ 200 mls/hr IV Q12 [facility] Rx#:[id number] Methocarbamol 1,000 mg In 125 100 Ns 50 ml @ 200 mls/hr IV Q8HRS [facility] Rx#:[id number] Ns 1,000 ml @ 75 mls/hr 819 IV CONT [facility] Rx#: [id number] Ns 1,000 ml @ 75 mls/hr 750 750 IV CONT [facility] Rx#: [id number] Ns 500 ml @ 1500 mls/hr 500 IV ONCE ONE Rx#: [id number] Ns 500 ml @ As Directed 500 IV ONCE ONE Rx#: [id number] Output: Urine (ml) 1275 2125 Bedside Commode 875 1475 Catheter 400 Toilet 650 Other: Number of Voids Bedside Commode 4 1 Toilet 1 Number of Stools Bedside Commode 1 Vital Signs Temp Pulse Resp BP Pulse Ox 36.6 C 96 15 123/92 H 95 01/30/18 07:27 01/30/18 07:27 01/30/18 07:27 01/30/18 07:27 01/30/18 07:27 Laboratory Results 01/29/18 05:55 01/28/18 05:07 ICD10 Worksheet Patient Problems: Problems Problem Status Onset Dysphagia Acute Stenosis of cervical spine with myelopathy Acute
[2018-01-30] MEDS: [UNRECOGNIZED DRUG - OTHER] PO SCH (12:18)
[2018-01-30] MEDS: HYDROmorphONE/DILAUDID 1 MG/ML INJ IVP PRN (13:16)
--- NOTE | 2018-01-30 14:05 | HOSPPROG ---
Hospitalist Progress Note Assessment/Plan: #s/p Neck/Cervical Surgery on 01/26 -post op care per NS #Acute Pain Syndrome -cont with pain mgmt -cont Dilaudid DIE CAST ENGINEER -Overall well controlled #IDDM with labile blood glucose -cont D5NS -will restart 10 units of Tresiba (long acting insulin) HS. (her home dose is 80 units, she did not tolerate a cut to 40 units while NPO as she became hypoglycemic. Therefore she was off all insulin yesterday) -cont ISS #HTN with soft BP initially, now better after fluids -Restart home meds once tolerating po #Dysphagia: NPO currently. Failed Swallow again today -s/p steroid today -MANGLE ROLL OPERATOR following -She has been started on crackers today Lovenox for DVT proph #GERD: -On IV Protonix BID due to NPO. Change back to PO once tolerating PO #IV access: lost IV access today. Nursing could not replace. Will get PICC. thank you for this consult, we will follow along Subjective: no cp or sob. no n/v. pain is well controlled. Glucose is slighlty elevated. Objective: Vital Signs Temp Pulse Resp BP Pulse Ox 36.6 C 89 14 152/76 H 96 01/30/18 11:58 01/30/18 11:58 01/30/18 11:58 01/30/18 11:58 01/30/18 11:58 Laboratory Results 01/29/18 05:55 01/28/18 05:07 01/29/18 01/30/18 01/31/18 05:59 05:59 05:59 Intake Total 2794 1490 Output Total 1275 2125 Balance 1519 -635 - Physical Exam Constitutional: no apparent distress Eyes: PERRL Ears, Nose, Mouth, Throat: moist mucous membranes, hearing normal, ears appear normal Cardiovascular: regular rate and rhythym, No bradycardia, No edema Respiratory: no respiratory distress, no rales or rhonchi, clear to auscultation Gastrointestinal: normoactive bowel sounds, soft, non-tender abdomen Skin: warm Neurologic: AAOx3 Psychiatric: interacting appropriately, not anxious, not encephalopathic Lymph, Heme, Immunologic: No petechiae ICD10 Worksheet Patient Problems: Problems Problem Status Onset Dysphagia Acute Stenosis of cervical spine with myelopathy Acute
[2018-01-30] MEDS ORDERED: DIAZEPAM 5 MG/ML 1 ML SYR IVP PRN (14:33)
[2018-01-30] MEDS: ACETAMINOPHEN 500 MG TAB PO SCH ×2 (17:13→23:07)
[2018-01-30] MEDS: FAMOTIDINE 20 MG TAB PO SCH ×2 (19:51→20:03)
[2018-01-30] MEDS: ROSUVASTATIN CALCIUM 10 MG TAB PO SCH (19:51)
[2018-01-30] MEDS: METHOCARBAMOL 750 MG TAB PO SCH (19:51)
[2018-01-30] MEDS: HYDROmorphONE/DILAUDID 2 MG TAB PO PRN ×3 (19:52→23:09)
[2018-01-30] MEDS ORDERED: INSULIN DEGLUDEC 50 UNIT SQ SCH (21:00)
[2018-01-31] MEDS: GABAPENTIN 300 MG CAP PO SCH ×3 (06:00→20:59)
[2018-01-31] MEDS: METHOCARBAMOL 750 MG TAB PO SCH ×4 (06:00→20:59)
[2018-01-31] MEDS: HYDROmorphONE/DILAUDID 2 MG TAB PO PRN (06:06)
[2018-01-31] MEDS: ENOXAPARIN 40 MG/0.4 ML SYR SC SCH (08:40)
[2018-01-31] MEDS: PANTOPRAZOLE SODIUM 40 MG VIAL IVP SCH (08:40)
[2018-01-31] MEDS: SENNOSIDES/DOCUSATE SODIUM TAB PO SCH ×2 (08:41→20:59)
[2018-01-31] MEDS: FAMOTIDINE 20 MG TAB PO SCH ×2 (08:41→20:59)
[2018-01-31] MEDS: ACETAMINOPHEN 500 MG TAB PO SCH ×3 (08:42→23:20)
[2018-01-31] MEDS: ESTRADIOL VIVELLE 0.1 MG PATCH TD SCH ×2 (08:43→16:02)
[2018-01-31] MEDS: INSULIN LISPRO 100 UNIT/ML SC SCH ×3 (08:44→17:48)
[2018-01-31] MEDS: [UNRECOGNIZED DRUG - OTHER] PO SCH (08:45)
--- NOTE | 2018-01-31 08:49 | NEUSURGPN ---
Assessment/Plan: Assessment: 62 yr old F s/p ACDF C5-6, C6-7, C7-T1, PSF C3-T1, left C4-5 foraminotomy POD#5 Plan: -Continued difficulty swallowing - was given 1 more additional dose of steroid Wednesday -had a hard time with water and pills but feels slightly improved., PRESSURE TEST OPERATOR following -Pain management: patient has many allergies to pain medication. Pain tolerable with current regiment -PT/OT/ST -Hard collar on at all times, fitting well -Appreciate Hospitalist assistance with diabetes management and other medical issues -Post op xrays show stable hardware -Please call neurosurgery with questions/concerns Subjective: SOme continued but slightly improved dysphagia. Arm symptoms preop have improved. Pain tolerable with medications. Objective: AAOx# NAD MAEx4 Motor 5/[address] cdi Pinsite chintan removed. Catheter Insertion Date: 01/26/18 - Physician Patient Seen by : Gavin Neurosurgery Physical Exam - Vitals, I&O, Labs I and O 01/30/18 01/31/18 02/01/18 05:59 05:59 05:59 Intake Total 1490 375 Output Total 2125 900 100 Balance -635 -525 -100 Intake: IV Intake (ml) 620 IV Infused (ml) 870 375 D5w Ns 1,000 ml @ 75 mls/ 375 hr IV CONT [facility] Rx#: [id number] Famotidine 20 mg/NaCl 50 20 ml @ 200 mls/hr IV Q12 [facility] Rx#:[id number] Methocarbamol 1,000 mg In 100 Ns 50 ml @ 200 mls/hr IV Q8HRS [facility] Rx#:[id number] Ns 1,000 ml @ 75 mls/hr 750 IV CONT [facility] Rx#: [id number] Output: Urine (ml) 2125 900 100 Bedside Commode 1475 Toilet 650 900 100 Other: Intake Quantity Yes Sufficient Number of Voids Bedside Commode 1 Toilet 1 Number of Stools Bedside Commode 1 Vital Signs Temp Pulse Resp BP Pulse Ox 36.6 C 93 15 135/73 H 90 L 01/31/18 07:27 18 07:27 01/31/18 07:27 01/31/18 07:27 01/31/18 07:27 Laboratory Results 01/29/18 05:55 01/28/18 05:07 ICD10 Worksheet Patient Problems: Problems Problem Status Onset Dysphagia Acute Stenosis of cervical spine with myelopathy Acute
--- NOTE | 2018-01-31 13:33 | HOSPPROG ---
Hospitalist Progress Note Assessment/Plan: #s/p Neck/Cervical Surgery on 01/26 -post op care per NS -pain control: dc aircraft fueler, cont IV/PO dilaudid #IDDM - bgs on the rise. home basal insulin dose is 80 units, she did not tolerate 40 units while NPO, became hypoglycemic. Insulin restarted yesterday, bg's 200's today, eating better -stop D5 -increase basal insulin to 16 units, cont SSI -diabetic diet #HTN with soft BP initially, now normotensive off home losartan/hctz -resume home meds as indicated, cont to hold for now as she is normotensive #Dysphagia: cleared for diet by speech Lovenox for DVT proph #GERD: -change to oral protonix, will give once daily for now #Full code #Dispo: cont inpt, dispo per neurosurg, likely 1-2 days. PT/OT recommending inpt rehab. CM following Subjective: Pt is tired after receving robaxin. Walked with PT, but unable to do stairs. Swallowing better, speech cleared her for regular diet. Ate breakfast, bg's on the rise. Pain controlled. No fevers/chills, CP or SOB. Objective: Vital Signs Temp Pulse Resp BP Pulse Ox 36.6 C 93 15 135/73 H 90 L 01/31/18 07:27 01/31/18 07:27 01/31/18 07:27 01/31/18 07:27 01/31/18 07:27 Laboratory Results 01/29/18 05:55 01/28/18 05:07 01/30/18 01/31/18 02/01/18 05:59 05:59 05:59 Intake Total 1490 375 Output Total 2125 900 400 [facility]935 -525 -400 - Physical Exam Constitutional: no apparent distress Eyes: PERRL Ears, Nose, Mouth, Throat: moist mucous membranes Cardiovascular: regular rate and rhythym Respiratory: no respiratory distress, clear to auscultation Gastrointestinal: normoactive bowel sounds, soft, non-tender abdomen Skin: warm Neurologic: AAOx3 Psychiatric: interacting appropriately ICD10 Worksheet Patient Problems: Problems Problem Status Onset Dysphagia Acute Stenosis of cervical spine with myelopathy Acute
[2018-01-31] MEDS ORDERED: INSULIN DEGLUDEC 12 UNIT SQ SCH (13:35)
[2018-01-31] MEDS ORDERED: Insulin Degludec [Tresiba Flextouch U-100] 16 UNIT SQ SCH (14:19)
--- NOTE | 2018-01-31 15:05 | ASMTCMCOM ---
CM Note CM Note Notes: Per inpatient rehab, they have not received authorization from [facility]. I got a contact at [facility] (MARJ Coronel [phone]) from our UR dept and called her and left a message. PT/OT/ABRASIVE COATING MACHINE OPERATOR still recommending inpatient rehab. Patient sleeping with "do not disturb" sign on her door, so I did not give her an update. Case Management will follow. Date Signed: 01/31/2018 03:04 PM Electronically Signed By:Paige Shay RN
[2018-01-31] MEDS: ROSUVASTATIN CALCIUM 10 MG TAB PO SCH (20:58)
[2018-02-01] MEDS: GABAPENTIN 300 MG CAP PO SCH ×2 (05:21→13:53)
[2018-02-01] MEDS: METHOCARBAMOL 750 MG TAB PO SCH ×2 (05:21→12:00)
--- NOTE | 2018-02-01 08:04 | NEUSURGPN ---
Assessment/Plan: Assessment: 62 yr old F s/p ACDF C5-6, C6-7, C7-T1, PSF C3-T1, left C4-5 foraminotomy POD#5 Plan: -Continued difficulty swallowing - was given 1 more additional dose of steroid Wednesday -had a hard time with water and pills but feels slightly improved., NURSE RESEARCH following. Ordering breakfast this am. -Pain management: patient has many allergies to pain medication. Pain tolerable with current regimen -PT/OT/ST -Hard collar on at all times, fitting well -Appreciate Hospitalist assistance with diabetes management and other medical issues -Post op xrays show stable hardware -Dispo: pt does not want to go to rehab, would like to dc to home with [facility]. Possibly home today pending clinical course -D/w Dr Alonso -Please call neurosurgery with questions/concerns Subjective: Pt resting in bedside chair, pain well managed. Hoping she can dc to home Objective: AAOx3 NAD VSS MAEx4 Motor 5/5 BUE - some pain with motor testing C collar on Incisions dressed cdi Urinary Catheter in Place: No Catheter Insertion Date: 01/26/18 - Physician Discussed Patient with : [facility] Neurosurgery Physical Exam - Vitals, I&O, Labs I and O 01/31/18 02/01/18 02/02/18 05:59 05:59 05:59 Intake Total 375 700 Output Total 900 650 Balance -525 50 Intake: Oral (ml) 700 IV Infused (ml) 375 D5w Ns 1,000 ml @ 75 mls/ 375 hr IV CONT MANNY Rx#: [id number] Output: Urine (ml) 900 650 Toilet 900 650 Other: Intake Quantity Yes Yes Sufficient Number of Voids Toilet 1 Number of Stools Toilet 1 Vital Signs Temp Pulse Resp BP Pulse Ox 36.6 C 90 13 79/70 L 95 02/01/18 07:50 02/01/18 07:50 02/01/18 07:50 02/01/18 07:50 02/01/18 07:50 Laboratory Results 01/29/18 05:55 01/28/18 05:07 ICD10 Worksheet Patient Problems: Problems Problem Status Onset Dysphagia Acute Stenosis of cervical spine with myelopathy Acute
[2018-02-01] MEDS: ACETAMINOPHEN 500 MG TAB PO SCH (08:17)
[2018-02-01] MEDS: INSULIN LISPRO 100 UNIT/ML SC SCH ×2 (08:20→12:01)
[2018-02-01 08:27] VITALS: BP 123/62
[2018-02-01] MEDS: SENNOSIDES/DOCUSATE SODIUM TAB PO SCH (08:36)
[2018-02-01] MEDS: [UNRECOGNIZED DRUG - OTHER] PO SCH (08:36)
[2018-02-01] MEDS ORDERED: PANTOPRAZOLE SODIUM 40 MG TAB PO SCH (09:00)
[2018-02-01] MEDS: SCOPOLAMINE HYDROBROMIDE 1 MG/3 DAYS PATCH TD SCH (11:31)
[2018-02-01] MEDS: ENOXAPARIN 40 MG/0.4 ML SYR SC SCH (11:33)
[2018-02-01] MEDS: FAMOTIDINE 20 MG TAB PO SCH (11:33)
--- NOTE | 2018-02-01 13:02 | PDIAF ---
- Diagnosis Code Status: Full Code - Medication Management Discharge Medications: electronically signed and located in the Home Medication List. - Orders Services needed: Home Care, Registered Nurse, Physical Therapy, Occupational Therapy Home Care Face to Face: I certify that this patient was under my care and that I had the required [id number] encounter meeting the encounter requirements on the discharge day. My findings support the fact that the patient is homebound as defined in Home Care Face to Face Continued: CMS Chapter 7 Medicare Benefits Manual 30.1.1 , The condition of the patient is such that there exists a normal inability to leave home and consequently, leaving home would require a considerable and taxing effort. Diet Recommendation: no restrictions on diet Diet Texture: Regular Texture Diet, Thin Liquids, Water Protocol, Ice Chips, Non Oral Meds Additional Instructions: No NSAIDS for 6 months following any fusion procedure. Wear collar at all times 5-10lb weight limit Follow up in 2-3 weeks for post op visit Call office with any issues @ [phone] - Follow Up Care Current Providers and Referrals: KWAN HENRIQUEZ [Primary Care Provider] - Jessenia Alonso MD [Medical Doctor] -
--- NOTE | 2018-02-01 15:24 | HOSPPROG ---
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 home basal insulin dose is 80 units, held post-op for hypoglycemia. Insulin restarted yesterday, bg's 200's today, eating better -increase basal insulin to 60 units, cont SSI -diabetic diet #HTN with soft BP initially, now normotensive off home losartan/hctz -cont to hold anti-hypertensives for now as she is normotensive -she will check her BP's at home and resume if SBP >140 #Dysphagia: cleared for diet by speech, tolerating regular diet today Lovenox for DVT proph #GERD: -cont ppi #Full code #Dispo: cont inpt, dispo per neurosurg. PT/OT recommending inpt rehab. CM following Subjective: Pt feels better. Up in chair. Eating better, notes bg's on the rise. Pain controlled. Gets some nausea on occasion. Objective: Vital Signs Temp Pulse Resp BP Pulse Ox 36.6 C 90 13 123/62 H 95 02/01/18 07:50 02/01/18 07:50 02/01/18 07:50 02/01/18 08:26 02/01/18 07:50 Laboratory Results 01/29/18 05:55 01/28/18 05:07 01/31/18 02/01/18 02/02/18 05:59 05:59 05:59 Intake Total 375 700 Output Total 900 650 Balance -525 50 - Physical Exam Constitutional: no apparent distress Eyes: PERRL Ears, Nose, Mouth, Throat: moist mucous membranes Cardiovascular: regular rate and rhythym Respiratory: no respiratory distress, clear to auscultation Gastrointestinal: normoactive bowel sounds, soft, non-tender abdomen Skin: warm Musculoskeletal: full muscle strength Neurologic: AAOx3 Psychiatric: interacting appropriately ICD10 Worksheet Patient Problems: Problems Problem Status Onset Dysphagia Acute Stenosis of cervical spine with myelopathy Acute
--- NOTE | 2018-02-01 15:40 | ASMTLACE ---
LACE Length of stay for Answers: 7-13 days current admission Acuity / Level of Answers: Yes Care: Did the patient have an inpatient admission? Comorbidities - select Answers: Diabetes (uncontrolled or all that apply controlled) Opioid dependence / Chronic pain Other Notes: HTN; GERD # of Emergency department Answers: 0 visits in the last 6 months Score: 14 Date Signed: 02/01/2018 03:40 PM Electronically Signed By:UCHE Nolan
--- NOTE | 2018-02-01 16:34 | ASMTCMCOM ---
CM Note CM Note Notes: Pt medically stable for d/c home with HHC. Pt declines inpatient rehab. [facility] cannot accept pt, Chantale with [facility] is placing pt w another agency, which is TBD. Date Signed: 02/01/2018 04:34 PM Electronically Signed By:UCHE Nolan
[2018-02-01] MEDS ORDERED: INSULIN DEGLUDEC 30 UNIT SQ SCH (21:00)
--- NOTE | 2018-02-02 09:09 | ASMTCMCOM ---
CM Note CM Note Notes: Chantale [facility] has secured [facility] for pt. She has provided orders. Date Signed: 02/02/2018 09:08 AM Electronically Signed By:UCHE Nolan
--- NOTE | 2018-02-02 13:38 | ASDISCHSUM ---
Discharge Information Plan Status:Home with Home Health Medically Cleared to Leave: Discharge Date:02/01/2018 03:48 PM CM D/C Disposition: [facility] Projected Discharge Date:02/01/2018 11:00 AM Transportation at D/C: Discharge Delay Reason: Follow-Up Date:02/01/2018 11:00 AM Discharge Slot: Final Diagnosis: Placement Information Referral Type:*Home Health Care Services Referral ID:[id number] Provider Name:[facility] Address 1:[address] [address] Phone Number: Address 2: Fax Number: City:[place] Selection Factors: State:[place] Patient Contact Information Contact Name:NORA Relationship: Address:[address] Work Phone: City:[facility] Phone: [facility]/Zip Code:[place] [address] Email: Financial Information Financial Class:HMO and PPO Plans Primary Plan Desc:[employer] TAINA GARY Primary Plan Number:[id number] Secondary Plan Desc: Secondary Plan Number: Assessment Information LACE LACE Length of stay for Answers: 7-13 days current admission Acuity / Level of Answers: Yes Care: Did the patient have an inpatient admission? Comorbidities - select Answers: Diabetes (uncontrolled or all that apply controlled) Opioid dependence / Chronic pain Other Notes: HTN; GERD # of Emergency department Answers: 0 visits in the last 6 months Score: 14 Date Signed: 02/01/2018 03:40 PM Electronically Signed By:UCHE Nolan [facility] Initial CM Assessment Living Arrangements What is your living Answers: With Spouse arrangement? Who do you live with? Type Of Residence What kind of residence do Answers: House you live in? Discharge Plan Comments Coordination Status Comments Notes: Patient is a 62yo female who has cervical stenosis and spondylosis and worsening pain and weakness. She was admitted for surgery, C5/6, 6/7, 7/1 cervical fusion anterior, cervical fusion posterior w/stealth neuro monitoring. OT/PT/MONUMENTAL STONEMASON ordered. D/C plan TBD. CM will follow. Date Signed: 01/27/2018 09:19 AM Electronically Signed By:Louann Dawkins LCSW [facility] Progress Note CM Denia NEAL Note Notes: Patient is POD #3 extensive cervical spine surgery. She is having difficulty swallowing; MONUMENTAL STONEMASON will see her. She is normally independent and lives with her . She feels strongly that inpatient rehab will be best disposition. Order has been sent; [facility] IPR will follow Wednesday 01/31. Date Signed: 01/29/2018 11:01 AM Electronically Signed By:Paige Shay RN [facility] ÁNGEL Progress Note CM Note ÁNGEL Note Notes: Per inpatient rehab, they have not received authorization from [facility]. I got a contact at [facility] (MARJ Coronel [phone]) from our UR dept and called her and left a message. PT/OT/MONUMENT[facility] STONEMASON still recommending inpatient rehab. Patient sleeping with "do not disturb" sign on her door, so I did not give her an update. Case Management will follow. Date Signed: 01/31/2018 03:04 PM Electronically Signed By:Paige Shay RN [facility] CM Progress Note CM Note CM Note Notes: Pt medically stable for d/c home with [facility]. Pt declines inpatient rehab. [facility] cannot accept pt, Chantale with [facility] is placing pt w another agency, which is TBD. Date Signed: 02/01/2018 04:34 PM Electronically Signed By:UCHE Nolan [facility] CM Progress Note CM Note CM Note Notes: Chantale with [facility] has secured [facility] for pt. She has provided orders. Date Signed: 02/02/2018 09:08 AM Electronically Signed By:UCHE Nolan Intervention Information
--- NOTE | 2018-02-04 13:27 | GDS ---
ADMISSION DATE: January 26, 2018 DISCHARGE DATE: February 01, 2018 PRIMARY DIAGNOSIS: Cervical stenosis. OPERATIONS AND PROCEDURES: On January 26, 2018, the patient underwent an anterior cervical diskectomy and fusion of C5-C6, C6-C7, C7-T1 with a posterior spinal fusion of C3 to T1 and a left C4 foraminotomy, with Dr. Lina Alonso. HOSPITAL COURSE: The patient presented to [facility] on January 26, 2018, for an anterior cervical diskectomy and fusion of C5-C6, C6-C7 , C7-T1 with a posterior spinal fusion of C3 to T1 and left C4-C5 foraminotomy, with Dr. Alonso. The procedure was performed by Dr. Alonso, for which there were no known complications (please see his operative notes for further details) . After the operation, the patient was in stable condition and transferred from the OR to the PACU and then to the postsurgical floor. While on the floor , the patient received physical therapy, occupational therapy, and speech therapy. All drains and catheters were removed. The patient did experience some dysphagia postoperatively. She was given steroids on postoperative day #1 and underwent a video swallow test on February 01, 2018, which was normal. The patient was in stable condition and subsequently discharged to home with home health care on February 01, 2018. The patient will follow up in the office with Dr. Alonso in 2 weeks for postoperative visit. She has been instructed to contact our office with any questions or concerns at [phone]. DISCHARGE MEDICATIONS: Please see medication reconciliation for details. COMPLICATIONS: None. DISCHARGE CONDITION: Stable. DISCHARGE INSTRUCTIONS: The patient is to avoid any bending or twisting of her neck. She is to avoid lifting greater than 10 pounds for the next 2 weeks. It is okay to remove the outer dressings on both incisions and leave the Steri- Strips in place. It is okay for the patient to shower (she is to avoid submerging her incision for the next 2-3 weeks). The patient will call our office with any questions at [phone]. /[id number]/MODL MTDD
== END 2018-02-01 15:48 | disposition home health service (06) | DRG 455 ==
LOC: F3N 07:44 → F2N 20:59 → F3N 01-29 18:24
PROVIDERS: ADMIT Neurological Surgery; ATTEND Neurological Surgery
PROC: 8E0WXBZ Computer Assisted Procedure of Trunk Region (ICD-10-PCS; principal; 2018-01-26 09:30)
PROC: 0RG2071 Fusion of 2 or more Cervical Vertebral Joints with Autologous Tissue Substitute, Posterior Approach, Posterior Column, Open Approach (ICD-10-PCS; principal; 2018-01-26 09:30)
PROC: 0RG20A0 Fusion of 2 or more Cervical Vertebral Joints with Interbody Fusion Device, Anterior Approach, Anterior Column, Open Approach (ICD-10-PCS; principal; 2018-01-26 09:30)
PROC: 4A1004G Monitoring of Central Nervous Electrical Activity, Intraoperative, Open Approach (ICD-10-PCS; principal; 2018-01-26 09:30)
PROC: 00NW0ZZ Release Cervical Spinal Cord, Open Approach (ICD-10-PCS; principal; 2018-01-26 09:30)
PROC: 0RT30ZZ Resection of Cervical Vertebral Disc, Open Approach (ICD-10-PCS; principal; 2018-01-26 09:30)
PROC: 01N10ZZ Release Cervical Nerve, Open Approach (ICD-10-PCS; principal; 2018-01-26 09:30)
PROC: 0RG4071 Fusion of Cervicothoracic Vertebral Joint with Autologous Tissue Substitute, Posterior Approach, Posterior Column, Open Approach (ICD-10-PCS; principal; 2018-01-26 09:30)
PROC: 0RG40A0 Fusion of Cervicothoracic Vertebral Joint with Interbody Fusion Device, Anterior Approach, Anterior Column, Open Approach (ICD-10-PCS; principal; 2018-01-26 09:30)
PROC: 02H633Z Insertion of Infusion Device into Right Atrium, Percutaneous Approach (ICD-10-PCS; 2018-01-29)
DX: M47.22 Other spondylosis with radiculopathy, cervical region (principal); M48.02 Spinal stenosis, cervical region; R13.10 Dysphagia, unspecified; E11.65 Type 2 diabetes mellitus with hyperglycemia; I10 Essential (primary) hypertension; E78.5 Hyperlipidemia, unspecified; K21.9 Gastro-esophageal reflux disease without esophagitis; Z98.1 Arthrodesis status
CPT/HCPCS: 92526-GN; 92610-GN; 92611-GN; 97116-GP; 97163-GP; 97167-GO; 97530-GO; 97530-GP; 97535-GO; C1713; C1751; J0171; J0690; J1100; J1170; J1200; J1650; J1815; J2250; J2370; J2405; J2704; J2800; J2930; J3010; P9041